=== PATIENT | female | born 2000 | race Caucasian/White ===

== ENCOUNTER 2022-02-22 03:16 | Emergency (ER) | payer MEDICAID, SELFPAY ==
[2022-02-22 03:17] VITALS: BP 120/78; PULSE 73; RESP 16; TEMP 36.2; O2SAT 100; BMI 20.7
[2022-02-22] MEDS: 0.9% Normal Saline 1,000 ML 999 ML IV (03:55)
[2022-02-22] MEDS: DiphenhydrAMINE 50 MG/ML Syringe IV (03:56)
[2022-02-22] MEDS: Metoclopramide 10 MG/2 ML Vial IV (03:57)
[2022-02-22] MEDS: Ketorolac 30 MG/ML Syringe IV (03:57)
--- NOTE | 2022-02-22 05:06 | EX.ED.DYSGE1 ---
HPI History of Present Illness Chief Complaint: Headache Narrative Narrative: Patient is a 21-year-old female with remote history of headaches. She states that she developed a left-sided headache which is where she typically gets her migraines around 4 PM today. She states the headache came on gradually increased over the course of hours. She denies any trauma fevers or chills or sick symptoms prior to the headache beginning. She states that she is sensitive to light and sound which is similar nature to her previous migraines. She reports she took [id number] medication without symptom improvement and secondary to this comes in for evaluation. [facility] Home Medications NK 02/22/22 [History Last Taken Unknown] Allergy/AdvReac Type Severity Reaction Status Date / Time gluten AdvReac Upset Verified 02/22/22 03:19 Stomach Social History Smoking Status: Current every day smoker tobacco type: e-cigarettes ROS ROS ED Constitutional Constitutional ED: Denies chills or fever(s) Eyes Eyes: Reports other Details: Positive photophobia ENT ENT ED: Denies sore throat Cardiovascular Cardiovascular: Denies chest pain Respiratory/Chest Respiratory/Chest: Denies cough or dyspnea Gastrointestinal Gastrointestinal: Reports nausea; Denies abdominal pain, diarrhea or vomiting Genitourinary Genitourinary ED: Denies dysuria Musculoskeletal Musculoskeletal: Denies myalgias or neck pain Integumentary Denies rash Neurologic Neurologic: Reports headache(s) Hematologic/Lymphatic Hematologic/Lymphatic: Denies easy bleeding or easy bruising EXAM Physical Exam Const Vital Signs: 02/22/22 03:17 02/22/22 05:15 Temperature 97.1 F L Temperature Source Temporal Pulse Rate 73 83 Respiratory Rate 16 15 Blood Pressure 120/78 Blood Pressure Mean 92 Pulse Ox 100 97 Oxygen Delivery Method Room Air Positive well nourished and well developed General Appearance ED: well developed HEENT Reports moist mucous membranes Eyes PERRL and EOMs intact bilaterally Neck supple Neck Narrative: No meningeal signs Resp normal respiratory effort and clear to auscultation bilaterally Cardio regular rate and regular rhythm GI normal to inspection, nondistended, normoactive bowel sounds, non-tender, non-distended and no masses Auscultation: normoactive bowel sounds Palpation: soft Extremity normal to inspection Neuro oriented x3 and CN's II-XII intact bilaterally Neuro Narrative: NIH stroke scale score of 0 Sensorium / Orientation: alert Motor Exam: strength 5/5 throughout Psych mental status grossly normal Skin no rashes or lesions noted MDM MDM MDM Narrative Medical decision making narrative: Patient presented to the ER with stable vitals and a normal neurologic exam. She does have a history of migraine headache and this 1 is similar nature based on its location and symptom profile. Therefore I felt no need for imaging or laboratory studies. Patient was medicated with IV fluids Toradol Benadryl and Reglan. On reevaluation she reports resolution of the headache and her neuro exam remains normal. Therefore as I have low concern for underlying infectious process and there is no physical exam or history reports concerning for trauma I do not feel there is need for further work-up and patient is safe for discharge Discharge Plan Triage Chief Complaint: Headache ED Provider: Nishant Walsh Dx/Rx/DC Orders Clinical Impression: Cephalgia Instructions: ED, Migraine (Classical) Prescriptions: No Action NK RF: 0 Primary Care Provider: Care Physician,No Primary Referrals: Ramon Argueta MD [STAFF PHYSICIAN] - 3-5 Days if not improving Care Physician,No Primary [Primary Care Provider] - Disposition Disposition: Home, Self Care Discharge Date/Time: 02/22/22 05:17
[2022-02-22 05:15] VITALS: PULSE 83; RESP 15; O2SAT 97
== END 2022-02-22 05:17 | disposition home or self-care (01) ==
PROVIDERS: Emergency Provider Emergency Medicine; Visit Provider Emergency Medicine
DX: R51.9 Headache, unspecified (principal); F17.290 Nicotine dependence, other tobacco product, uncomplicated
CPT/HCPCS: 96361; 96374; 96375; 99282; A4216

== ENCOUNTER 2022-03-17 22:45 | Emergency (ER) | payer MEDICAID, SELFPAY ==
[2022-03-17 22:46] VITALS: BP 116/76; PULSE 76; RESP 18; TEMP 36.4; O2SAT 98; BMI 18.8
--- NOTE | 2022-03-17 22:58 | ED.VIS.GI ---
HPI HPI - GI History of Present Illness Chief Complaint: Abd Pain Informant: patient Abdominal Pain/Flank Pain Onset: Weeks (2) Context: Gradual Onset Timing: Waxes and wanes Quality: Stabbing Location: - (Periumbilical) Worsened by: - (Sitting, working) Relieved by: Nothing Nausea/Vomiting/Emesis GI Symptom: Positive for Nausea; Negative for Vomiting Diarrhea/Melena/Hematochezia GI Symptom: Negative for Diarrhea, Melena and Hematochezia Associated Symptoms Associated Symptoms: Negative for Dysuria, Frequency and Hematuria LMP: November of this year Narrative Narrative: Patient presents with abdominal that pain began approximately 2 weeks ago. Patient states it has been waxing and waning. Patient states it has been constant for the last couple days. Patient states it is over the periumbilical area. Patient states she felt a lump in this area. Patient states it is worse with sitting and with working. Patient states nothing seems to help with it. Patient admits to nausea but denies any vomiting. Patient denies any diarrhea, melena, or hematochezia. Patient denies any dysuria, hematuria, or urinary frequency. Patient denies any abnormal vaginal bleeding or discharge. PFSH PFSH Medical History no medical history no medical history Home Medications NK 02/22/22 [History Last Taken Unknown] Allergy/AdvReac Type Severity Reaction Status Date / Time gluten AdvReac Upset Verified 03/17/22 22:48 Stomach Surgical History no surgical history no surgical history Social History Smoking Status: Current every day smoker tobacco type: e-cigarettes ROS ROS ED Constitutional Constitutional ED: Denies chills or fever(s) Eyes Eyes: Denies blurry vision or change in vision ENT ENT ED: Denies rhinorrhea or sore throat Cardiovascular Cardiovascular: Denies chest pain or palpitations Respiratory/Chest Respiratory/Chest: Reports dyspnea; Denies cough Gastrointestinal Gastrointestinal: Reports abdominal pain; Denies nausea or vomiting Genitourinary Genitourinary ED: Denies dysuria or hematuria Musculoskeletal Musculoskeletal: Denies back pain or neck pain Integumentary Denies abscess or rash Neurologic Neurologic: Denies headache(s) or weakness Allergic/Immunologic Allergic/Immunologic ED: Denies mouth swelling or urticaria EXAM Physical Exam Const Vital Signs: 03/17/22 22:46 03/18/22 01:58 Temperature 97.6 F L Temperature Source Temporal Pulse Rate 76 63 Respiratory Rate 18 14 Blood Pressure 116/76 107/70 Blood Pressure Mean 89 82 Pulse Ox 98 97 Oxygen Delivery Method Room Air Room Air Positive well nourished and well developed General Appearance ED: well developed and NAD HEENT Reports moist mucous membranes Neck supple and no JVD Resp normal respiratory effort and clear to auscultation bilaterally Cardio regular rate and regular rhythm GI no masses Auscultation: normoactive bowel sounds Palpation: soft and tender periumbilical; Negative for guarding or rebound tenderness present Neuro CN's II-XII intact bilaterally, moves all extremities and no sensory deficits noted Sensorium / Orientation: alert and oriented to person Motor Exam: strength 5/5 throughout MDM MDM MDM Narrative Medical decision making narrative: Patient was given IV fluids, morphine, and Zofran here. CBC was within normal limits. Comprehensive metabolic profile showed potassium of 2.9 but was otherwise within normal limits. Lipase was normal. Urinalysis does not show any evidence of urinary tract infection or hematuria. Serum hCG was negative. CT scan of the abdomen and pelvis was obtained. There is some mesenteric lymphadenopathy noted. There is a small amount of free fluid in the pelvis. There is no acute abnormality noted. This was interpreted by the radiologist and reviewed by myself. Patient is feeling better on reevaluation. Patient was advised of her findings. Patient was instructed to follow-up with her primary care physician in 5 to 7 days. Patient was instructed to take Tylenol or ibuprofen as needed for pain. Patient understood and was agreeable with the plan. All questions were answered. Lab Data Attestation: I reviewed the patient's lab results. Labs: Laboratory Results - last 24 hr 03/17/22 03/17/22 03/17/22 23:10 23:14 23:14 WBC 8.5 RBC 4.83 Hgb 13.0 Hct 40.4 MCV 83.6 MCH 26.9 L MCHC 32.2 RDW Std Deviation 43.6 RDW Coeff of [place] 14.2 Plt Count 181 MPV 12.4 H Immature Gran % (Auto) 0.200 Neut % (Auto) 55.1 Lymph % (Auto) 33.0 [place] % (Auto) 5.3 Eos % (Auto) 5.8 H Baso % (Auto) 0.6 Absolute Neuts (auto) 4.7 Absolute Lymphs (auto) 2.79 Nucleated RBC % 0 Sodium 141 Potassium 2.9 L Chloride 109 H Carbon Dioxide 26.0 Anion Gap 6 BUN 7 Creatinine 0.59 Estim Creat Clear Calc 129.61 Est GFR (MDRD) Af Amer 163 Est GFR (MDRD) Non-Af 135 BUN/Creatinine Ratio 11.8 Glucose 90 Calcium 8.7 Total Bilirubin 0.60 AST 9 L ALT 11 L Alkaline Phosphatase 42 L Total Protein 7.3 Albumin 4.1 Globulin 3.2 Albumin/Globulin Ratio 1.3 Lipase 58 L Serum , Qual Urine Color Yellow Urine Clarity Clear Urine pH 7.0 Ur Specific [place] 1.015 Urine Protein 15 H Urine Glucose (UA) Normal Urine Ketones 5 H Urine Occult Blood 25 H Urine Nitrite Negative Urine Bilirubin Negative Urine Urobilinogen Normal Ur Leukocyte Esterase 25 H Urine RBC 0-5 SEEN Urine WBC 0-5 SEEN Ur Squamous Epith Cells 0-5 SEEN Urine Bacteria 2+ Urine Mucus 2+ 03/17/22 23:14 WBC RBC Hgb Hct MCV MCH MCHC RDW Std Deviation RDW Coeff of [place] Plt Count MPV Immature Gran % (Auto) Neut % (Auto) Lymph % (Auto) [place] % (Auto) Eos % (Auto) Baso % (Auto) Absolute Neuts (auto) Absolute Lymphs (auto) Nucleated RBC % Sodium Potassium Chloride Carbon Dioxide Anion Gap BUN Creatinine Estim Creat Clear Calc Est GFR (MDRD) Af Amer Est GFR (MDRD) Non-Af BUN/Creatinine Ratio Glucose Calcium Total Bilirubin AST ALT Alkaline Phosphatase Total Protein Albumin Globulin Albumin/Globulin Ratio Lipase Serum , Qual NEGATIVE Urine Color Urine Clarity Urine pH Ur Specific [place] Urine Protein Urine Glucose (UA) Urine Ketones Urine Occult Blood Urine Nitrite Urine Bilirubin Urine Urobilinogen Ur Leukocyte Esterase Urine RBC Urine WBC Ur Squamous Epith Cells Urine Bacteria Urine Mucus Radiography Diagnostic Testing: Clinical Impression(s) from Imaging Studies Abdomen/Pelvis CT 03/18/22 23:04 IMPRESSION: Normal appendix. Small clustered pericecal lymph nodes, consistent with mesenteric adenitis. Small amount of nonspecific free fluid within the pelvis which may be due to a ruptured ovarian cyst. Numerous prominent periuterine vessels as can be seen with pelvic congestion. 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 Electronically Signed: Mao Baliey MD at 2:01 EDT , Discharge Plan Triage Chief Complaint: Abd Pain ED Provider: Ramon Weldon Dx/Rx/DC Orders Clinical Impression: Abdominal pain in female, Mesenteric adenitis Instructions: ED Abdominal Pain Unkn Cause Fem Prescriptions: No Action NK RF: 0 Primary Care Provider: Care Physician,No Primary Referrals: Ramon Agrawal MD [STAFF PHYSICIAN] - 3-5 Days Care Physician,No Primary [Primary Care Provider] - Disposition Disposition: Home, Self Care
[2022-03-17] MEDS: Morphine 4 MG/ML Syringe IV (23:17)
[2022-03-17] MEDS: Ondansetron 4 MG/2 ML Vial IV (23:17)
[2022-03-17] MEDS: 0.9% Normal Saline 1,000 ML 1000 ML IV (23:18)
[2022-03-17 23:47] LABS: Absolute Lymphocyte Count 2.79 X10^3/uL (0.83-4.51); Absolute Neutrophil Count 4.7 X10^3/uL (2.0-7.7); Basophil# 0.05 X10^3/uL; Basophil% 0.6 % (0-1); Eosinophil# 0.49 X10^3/uL; Eosinophils% 5.8 % (0-5); Hematocrit 40.4 % (37-47); Lymphocyte # 2.79 X10^3/ul (0.83-4.51); Mean Corp Hgb Conc 32.2 g/dL (32-36); Mean Corpuscular Hgb 26.9 pg (27.0-32.0); Mean Corpuscular Volume 83.6 fL (81-99); Mean Platelet Vol. 12.4 fl (6.2-12.0); Monocyte# 0.45 X10^3/uL; Monocyte% 5.3 % (0-10); NRBC Flagged by Analyzer 0 % (0-5); Neutrophil # 4.65 X10^3/uL (2.7-7.7); Neutrophil % 55.1 % (47-70); Platelet Count 181 K/mm3 (150-450); RBC Distribution Width CV 14.2 % (11.6-14.6); RBC Distribution Width SD 43.6 fl (35.1-43.9); Red Blood Count 4.83 M/mm3 (4.2-5.4); White Blood Count 8.5 K/mm3 (4.4-11.0)
[2022-03-18 00:04] LABS: Internal QC Validated? YES +Cl - CLEAR BKGD; Pregnancy, Serum, hCG Quali. NEGATIVE Negative
[2022-03-18 00:09] LABS: ALB/GLOB Ratio 1.3 RATIO (0.9-2.4); AST(SGOT) 9 U/L (15-37); Alanine Aminotransfer ALT/SGPT 11 U/L (13-56); Albumin, Serum 4.1 g/dL (3.2-5.0); Alkaline Phosphatase 42 U/L (45-117); Anion Gap 6 (5-15); BUN 7 mg/dL (7-18); BUN/Creat Ratio 11.8 RATIO (10-20); Calcium,Total 8.7 mg/dL (8.5-10.1); Chloride 109 mmol/L (98-107); Creatinine, Serum 0.59 mg/dL (0.55-1.02); EST Glomerular Filtration Rate 135 mL/min (>60); Est Glom Filt Rate - Afr Amer 163 mL/min (>60); Estimated Creatinine Clearance 129.61 ml/min; Globulin 3.2 g/dL (2.2-4.2); Glucose 90 mg/dL (74-106); Lipase 58 U/L (73-393); Potassium 2.9 mmol/L (3.5-5.1); Protein, Total 7.3 g/dL (6.4-8.2); Sodium Level 141 mmol/L (136-145)
[2022-03-18 00:11] LABS: Color, Urine Yellow (Yellow); Glucose, Dipstick Normal (Normal); Ketone-Dipstick 5 mg/dl (Negative); Leukocyte Esterase-Dipstick 25 /ul (Negative); Nitrite-Dipstick Negative (Negative); Occult Blood-Urine 25 /ul (Negative); Protein-Dipstick 15 mg/dl (Negative); Specific Gravity, Urine 1.015 (1.002-1.030); Urine Bilirubin Dipstick Negative (Negative); Urine Clarity Clear (Clear); Urine Urobilinogen Normal (Normal)
[2022-03-18] MEDS: Potassium Chloride Oral Tablet 20 MEQ 40 MEQ PO (00:33)
[2022-03-18 00:43] LABS: Bacteria 2+ /hpf (None Seen); Mucous, Urine 2+ /hpf (<or=2+); Red Blood Cells-Urine 0-5 SEEN /hpf (0-5); Squamous Epithelial Cells - UA 0-5 SEEN /hpf (5-10); White Blood Cells 0-5 SEEN /hpf (0-5)
[2022-03-18 01:58] VITALS: BP 107/70; PULSE 63; RESP 14; O2SAT 97
--- NOTE | 2022-03-18 23:04 | CT_ITS ---
EXAM: CT ABDOMEN AND PELVIS WITH INTRAVENOUS CONTRAST CLINICAL INDICATION: Abdominal pain -- IV PO Contrast oral contrast also administered. TECHNIQUE: Helically acquired images were obtained of the abdomen and pelvis with intravenous contrast. This CT exam was performed using one or more of the following dose reduction techniques: automated exposure control, adjustment of the mA and/or kV according to patient size, and/or use of iterative reconstruction technique. This report was created using [employer] report generation technology. CONTRAST: IV 75mL [id number] COMPARISON: None. FINDINGS: LOWER THORAX: Unremarkable. Lung bases are clear. No cardiomegaly. No significant pericardial effusion. ABDOMEN: LIVER: Unremarkable. Homogeneous. No focal mass. GALLBLADDER AND BILE DUCTS: Unremarkable. No calcified gallstones. No gallbladder distention or wall edema. No intra- or extrahepatic biliary ductal dilation. PANCREAS: Unremarkable. No focal cystic or solid mass. SPLEEN: Unremarkable. Normal size without focal cystic or solid mass. ADRENALS: Unremarkable. No nodules. KIDNEYS AND URETERS: Unremarkable. Normal renal size and position. No hydronephrosis. No obstructing ureteral stone. Left renal vein is not compressed by the SMA. STOMACH AND BOWEL: Gastric wall is not thickened. 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 The contrast-filled duodenal C-loop is mildly distended. More distal small bowel loops are unremarkable. No acute colonic abnormality is seen. PELVIS: APPENDIX: Normal. No evidence of acute appendicitis. BLADDER: The partially distended urinary bladder is unremarkable. REPRODUCTIVE: Uterus is normal size. Prominent periuterine vessels are present bilaterally, greater on the left, as can be seen with pelvic congestion. Ovaries are normal in size and contain tiny follicles. ABDOMEN and PELVIS: INTRAPERITONEAL SPACE: Small amount of nonspecific low-density free fluid in the cul-de-sac. No free air. BONES/JOINTS: Unremarkable. No suspicious lytic or blastic abnormality. SOFT TISSUES: Unremarkable. No discrete abdominal or pelvic wall hernia. VASCULATURE: See above. LYMPH NODES: Small lymph nodes are clustered in the pericecal region. A few additional small lymph nodes are noted within the small bowel mesentery. OTHER FINDINGS: Dose: Total DLP: 393.41 mGy-cm. CT/Abdomen/Pelvis WITH Contrast IMPRESSION: Normal appendix. Small clustered pericecal lymph nodes, consistent with mesenteric adenitis. Small amount of nonspecific free fluid within the pelvis which may be due to a ruptured ovarian cyst. Numerous prominent periuterine vessels as can be seen with pelvic congestion. 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 Electronically Signed: Mao Bailey MD at 2:01 EDT ,
== END 2022-03-18 02:24 | disposition home or self-care (01) ==
PROVIDERS: Emergency Provider Emergency Medicine; Visit Provider Emergency Medicine
DX: I88.0 Nonspecific mesenteric lymphadenitis (principal); F17.290 Nicotine dependence, other tobacco product, uncomplicated
CPT/HCPCS: 74177; 80053; 81001; 83690; 84703; 85025; 96361; 96374; 96375; 99284; J7030; Q9967; A4216; J2405

== ENCOUNTER 2022-04-08 23:54 | Emergency (ER) | payer MEDICAID, SELFPAY ==
[2022-04-08 23:56] VITALS: BP 111/84; PULSE 110; RESP 16; TEMP 36.5; O2SAT 100; BMI 19.5
--- NOTE | 2022-04-09 01:10 | RAD_ITS ---
EXAM: XR CHEST, 2 VIEWS CLINICAL INDICATION: intermittent sob TECHNIQUE: Frontal and lateral views of the chest. This report was created using [employer] report generation technology. COMPARISON: None. FINDINGS: LUNGS AND PLEURAL SPACES: Unremarkable. No consolidation or edema. No pneumothorax. No effusion. HEART: Unremarkable. Cardiac silhouette not enlarged. MEDIASTINUM: Central airways and mediastinal contour are unremarkable. BONES/JOINTS: Unremarkable. SOFT TISSUES: Unremarkable. RAD/Chest PA and Lateral IMPRESSION: No radiographic evidence of acute cardiopulmonary disease. Electronically Signed: Yfn Bell MD at 1:41 EDT ,
[2022-04-09] MEDS: Dicyclomine 10 MG Capsule 20 MG PO (01:14)
--- NOTE | 2022-04-09 01:14 | EDS_ITS ---
HPI History of Present Illness Chief Complaint: General Illness Informant: patient Narrative Narrative: Patient presents with chronic symptoms that seem to be getting worse. Unintentional weight loss due to malnutrition is what it sounds like, she eats half of a meal once a day at most. She states that she gets postprandial upper abdominal pain that is more in the right upper quadrant, some nausea no vomiting. No diarrhea she is usually more constipated but more recently has been having more normal stools, no blood or melena. Also having some left lower quadrant pain, the symptoms have been there for over a year. She states all of this seem to be more prominent after she had COVID last June. She was here 3 weeks ago for similar symptoms. She had a CT scan. She has seen GI in [place], she had endoscopy and was told initially she may have Crohn's disease based on the biopsies, but then saw somebody else and was told it was much less likely that it was Crohn's disease. They wanted to do a capsule study she states insurance would not cover it and she has not had that done. In the last 3 weeks or so, she has been intermittently dyspneic; she states it occurs randomly and then she spits saliva which makes it go away. She denies any chest discomfort or tightness, she thinks she may be wheezing at times when she is dyspneic but not always, and she cannot give me any more details on the salivation issues or why it makes things feel better. PFSH PFSH Medical History no medical history no medical history Home Medications NK 02/22/22 [History Last Taken Unknown] Allergy/AdvReac Type Severity Reaction Status Date / Time gluten AdvReac Upset Verified 04/08/22 23:56 Stomach Surgical History no surgical history Social History Smoking Status: Current every day smoker tobacco type: e-cigarettes ROS ROS ED Constitutional Constitutional ED: Reports malaise and weight loss; Denies chills or fever(s) Eyes Eyes: Denies change in vision or diplopia ENT ENT ED: Denies rhinorrhea or sore throat Cardiovascular Cardiovascular: Denies chest pain or palpitations Respiratory/Chest Respiratory/Chest: Reports as per HPI and dyspnea; Denies cough Gastrointestinal Gastrointestinal: Reports abdominal pain, constipation and nausea; Denies diarrhea, melena or vomiting Genitourinary Genitourinary ED: Denies dysuria or hematuria Musculoskeletal Musculoskeletal: Denies back pain or neck pain Integumentary Denies abscess or rash Neurologic Neurologic: Denies headache(s), paresthesias or weakness Psychiatric Psychiatric: Denies anxiety or suicidal thoughts EXAM Physical Exam Const Vital Signs: 04/08/22 23:56 04/09/22 00:18 Temperature 97.7 F L Temperature Source Temporal Pulse Rate 110 H Respiratory Rate 16 Respiratory Effort Normal Non-Labored Respiratory Pattern Normal Blood Pressure 111/84 H Blood Pressure Mean 93 Pulse Ox 100 Oxygen Delivery Method Room Air Positive well nourished and well developed General Appearance ED: well developed and NAD HEENT Reports moist mucous membranes normocephalic and atraumatic Eyes PERRL and EOMs intact bilaterally Neck full ROM and supple Chest Wall inspection of chest normal and palpation of chest normal Resp normal respiratory effort and clear to auscultation bilaterally Cardio regular rate, regular rhythm, no murmurs and peripheral pulses 2+ throughout Cardio Narrative: Mild tachycardia GI non-tender and non-distended Auscultation: normoactive bowel sounds Palpation: soft Back/Spine no CVA tenderness General Back: other FROM Extremity normal to inspection General Extremety ED: Negative for edema, pulses abnormal or tenderness General Extremity: Negative for edema or pulses abnormal Neuro oriented x3, CN's II-XII intact bilaterally and no sensory deficits noted Sensorium / Orientation: awake and alert Motor Exam: strength 5/5 throughout Psych mental status grossly normal Skin no rashes or lesions noted and no wounds MDM MDM MDM Narrative Medical decision making narrative: I reviewed her CT result from June at an outside [place] health facility, it showed scattered air-fluid levels with nondilated small bowel and was nonspecific and relatively unremarkable. I reviewed her CT from 3 weeks ago here, it actually shows suspicion for superior mesenteric artery syndrome which could be causing all of her problems. Conservative treatment is recommended initially. She was very hypokalemic the last time she was here, I repeated her electrolytes and gave her a liter of IV fluids in addition to a dose of oral Bentyl in the meantime. 2 view chest x-ray my interpretation is normal, radiology in agreement. Her electrolytes are normal except for potassium which is still low at 3.3, better than her last one at 2.9. I gave her an infusion of IV potassium 10 mill equivalents in addition to oral 40 mEq. I discussed with surgery here, they do not perform surgery for SMA syndrome in [place]. She would need to be at a specialty hospital such as [facility] more than likely. Patient is here between 1 and 3 AM. I did discuss with the resident surgeon at [facility], he advised they do not have any beds at [facility] right now, nor does she necessarily need to be an inpatient for this at this time, which I am in agreement with. He said it would be reasonable to have the patient follow-up locally with GI who could work her up further with testing that is not available to me right now to see if she indeed has superior mesenteric artery syndrome which the CT is suggesting but is not diagnostic for. I think this would be reasonable as well. She is given appropriate discharge instructions. Lab Data Attestation: I reviewed the patient's lab results. Labs: Laboratory Results - last 24 hr 04/09/22 04/09/22 00:10 00:10 WBC 9.6 RBC 5.04 Hgb 13.2 Hct 42.1 MCV 83.5 MCH 26.2 L MCHC 31.4 L RDW Std Deviation 43.3 RDW Coeff of [place] 14.4 Plt Count 220 MPV 12.6 H Immature Gran % (Auto) 0.100 Neut % (Auto) 53.8 Lymph % (Auto) 32.8 [place] % (Auto) 5.5 Eos % (Auto) 7.3 H Baso % (Auto) 0.5 Absolute Neuts (auto) 5.1 Absolute Lymphs (auto) 3.14 Nucleated RBC % 0 Sodium 141 Potassium 3.3 L Chloride 106 Carbon Dioxide 28.0 Anion Gap 7 BUN 8 Creatinine 0.68 Estim Creat Clear Calc 116.76 Est GFR (MDRD) Af Amer 139 Est GFR (MDRD) Non-Af 115 BUN/Creatinine Ratio 11.8 Glucose 107 H Calcium 9.4 Radiography Diagnostic Testing: Clinical Impression(s) from Imaging Studies Chest X-Ray 04/09/22 01:10 IMPRESSION: No radiographic evidence of acute cardiopulmonary disease. Electronically Signed: Yfn Bell MD at 1:41 EDT , Discharge Plan Triage Chief Complaint: General Illness ED Provider: Josue Stein Dx/Rx/DC Orders Clinical Impression: Malnutrition, Postprandial abdominal pain in right upper quadrant, Hypokalemia due to inadequate potassium intake Instructions: Abdominal Pain, ED Hypokalemia Prescriptions: No Action NK Primary Care Provider: Care Physician,No Primary Referrals: Friend,Edgar, DO [STAFF PHYSICIAN] - As soon as possible (call for appt) Care Physician,No Primary [Primary Care Provider] - Activity Restrictions/Additional Instructions: Boost your protein intake with supplements, such as boost shakes or Ensure. You may also get powdered whey protein to make your own protein shakes or smoothies at home. Drink plenty of fluids. Disposition Disposition: Home, Self Care
[2022-04-09] MEDS: 0.9% Normal Saline 1,000 ML 999 ML IV (01:16)
[2022-04-09 01:18] LABS: Absolute Lymphocyte Count 3.14 X10^3/uL (0.83-4.51); Absolute Neutrophil Count 5.1 X10^3/uL (2.0-7.7); Basophil# 0.05 X10^3/uL; Basophil% 0.5 % (0-1); Eosinophils% 7.3 % (0-5); Hematocrit 42.1 % (37-47); Hemoglobin 13.2 g/dL (12.0-15.0); Lymphocyte # 3.14 X10^3/ul (0.83-4.51); Lymphocyte % 32.8 % (19-41); Mean Corp Hgb Conc 31.4 g/dL (32-36); Mean Corpuscular Hgb 26.2 pg (27.0-32.0); Mean Corpuscular Volume 83.5 fL (81-99); Mean Platelet Vol. 12.6 fl (6.2-12.0); Monocyte# 0.53 X10^3/uL; Monocyte% 5.5 % (0-10); NRBC Flagged by Analyzer 0 % (0-5); Neutrophil # 5.13 X10^3/uL (2.7-7.7); Neutrophil % 53.8 % (47-70); Platelet Count 220 K/mm3 (150-450); RBC Distribution Width CV 14.4 % (11.6-14.6); RBC Distribution Width SD 43.3 fl (35.1-43.9); Red Blood Count 5.04 M/mm3 (4.2-5.4); White Blood Count 9.6 K/mm3 (4.4-11.0)
[2022-04-09 01:33] LABS: Anion Gap 7 (5-15); BUN 8 mg/dL (7-18); BUN/Creat Ratio 11.8 RATIO (10-20); Calcium,Total 9.4 mg/dL (8.5-10.1); Chloride 106 mmol/L (98-107); Creatinine, Serum 0.68 mg/dL (0.55-1.02); EST Glomerular Filtration Rate 115 mL/min (>60); Est Glom Filt Rate - Afr Amer 139 mL/min (>60); Estimated Creatinine Clearance 116.76 ml/min; Glucose 107 mg/dL (74-106); Potassium 3.3 mmol/L (3.5-5.1); Sodium Level 141 mmol/L (136-145)
[2022-04-09 02:00] VITALS: RESP 15
[2022-04-09] MEDS: Potassium Chloride Oral Tablet 20 MEQ 40 MEQ PO (02:20)
[2022-04-09] MEDS: Potassium Chloride 10mEq/100mL 10 MEQ/100 ML IV.SOLN. 100 MEQ IV BOLUS (02:36)
[2022-04-09 03:37] VITALS: BP 104/78; PULSE 74; RESP 17; O2SAT 98
== END 2022-04-09 03:38 | disposition home or self-care (01) ==
PROVIDERS: Emergency Provider Emergency Medicine; Visit Provider Emergency Medicine
DX: E46 Unspecified protein-calorie malnutrition (principal); E87.6 Hypokalemia; R10.11 Right upper quadrant pain; F17.290 Nicotine dependence, other tobacco product, uncomplicated; Z68.1 Body mass index [BMI] 19.9 or less, adult; Z86.16 Personal history of COVID-19
CPT/HCPCS: 71046; 80048; 85025; 96361; 96365; 99284; J7030; A4216

== ENCOUNTER → 2022-04-25 | Outpatient (CLI) | payer MEDICAID, SELFPAY ==
[2022-04-25 11:23] LABS: Erythrocyte Sedimentation Rate 3 mm/hr (0-30)
[2022-04-25 11:52] LABS: Vitamin B12 395 pg/mL (211-911); Vitamin D,25 Hydroxy 21.9 ng/mL
[2022-04-25 12:16] LABS: CRP < 2.90 mg/L (0.0-3.0); LDH 160 U/L (84-246); Thyroid Stim Hormone (TSH) 4.65 uIU/mL (0.358-3.74)
[2022-04-26 17:07] LABS: Endomysial Antibody IgA Negative (Negative)
[2022-04-26 20:20] LABS: Immunoglobulin A 224 mg/dL (87-352); t-Transglutaminase IgA <2 U/mL (0-3)
[2022-04-27 16:08] LABS: Anti-Centromere B Ab <0.2 AI (0.0-0.9); Anti-Chromatin <0.2 AI (0.0-0.9); Anti-Jo <0.2 AI (0.0-0.9); Anti-Scleroderma-70 AB <0.2 AI (0.0-0.9); RNP Ab <0.2 AI (0.0-0.9); SJOGREN'S Anti-SS-A test < 0.2 AI (0.0-0.9); SJOGREN'S Anti-SS-B test < 0.2 AI (0.0-0.9); Smith Ab <0.2 AI (0.0-0.9)
[2022-04-28 20:21] LABS: Anti-dsDNA Ab <1 IU/mL (0-9); Vitamin D 1,25-Dihydroxy 34.5 pg/mL (24.8-81.5)
[2022-04-29 17:07] LABS: Albumin 4.1 g/dL (2.9-4.4); Alpha-1-Globulins 0.3 g/dL (0.0-0.4); Alpha-2-Globulins 0.6 g/dL (0.4-1.0); Cytoplasmic Ab (C-ANCA) <1:20 titer (Neg:<1:20); Gamma Globulin 1.3 g/dL (0.4-1.8); Immunoglobulin A 216 mg/dL (87-352); Immunoglobulin G 1170 mg/dL (586-1602); Immunoglobulin M 185 mg/dL (26-217); PROEL- TOTAL PROTEIN 7.3 g/dL (6.0-8.5)
[2022-04-30 13:49] LABS: Immunoglobulin E < 2 IU/mL (6-495); Perinuclear Ab (P-ANCA) <1:20 titer (Neg:<1:20)
== END | disposition home or self-care (01) ==
LOC: LAB 10:49
PROVIDERS: Visit Provider Internal Medicine Gastroenterology
DX: R19.7 Diarrhea, unspecified (principal)
CPT/HCPCS: 36415; 82306; 82607; 82652; 82746; 82784; 82785; 83516; 83615; 84165; 84443; 85652; 86140; 86225; 86235; 86255; 86256; 86334

== ENCOUNTER → 2022-04-26 | Outpatient (CLI) | payer MEDICAID, SELFPAY ==
[2022-05-02 15:54] LABS: Pancreatic Elastase, Fecal 329 (>200)
[2022-05-03 07:41] LABS: Calprotectin, Stool 56 ug/g (0-120)
== END | disposition home or self-care (01) ==
LOC: LABSPEC 11:18
PROVIDERS: Referring Provider Internal Medicine Gastroenterology; Visit Provider Internal Medicine Gastroenterology
DX: R19.7 Diarrhea, unspecified (principal); K58.9 Irritable bowel syndrome, unspecified
CPT/HCPCS: 82653; 83630; 83993; 87177; 87209; 87506

== ENCOUNTER 2022-06-05 13:59 | Emergency (ER) | payer MEDICAID, SELFPAY ==
[2022-06-05 14:00] VITALS: BP 117/82; PULSE 121; RESP 14; TEMP 36.8; O2SAT 100; BMI 18.4
--- NOTE | 2022-06-05 14:55 | EDS_ITS ---
HPI History of Present Illness Chief Complaint: Lower Extremity Injury Informant: patient Narrative Narrative: Presenting here with her friend evaluation of worsening left hip pain and right knee pain for the past 5 days. Had initial fall down some steps in December injuring left hip would have pain from time to time. Symptoms started after taking out garbage. There is no new direct injuries to the hip. However states she may have bumped the trash can on her right knee and there is small bruise. She is able ambulate's been using Tylenol. 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 Reported has been cleared from a previous concern of Crohn's for 5 years. Denies history of gastric ulcers or kidney injury. She is able to ambulate. No paresthesias. Prior similar symptoms: Yes PFSH PFSH Medical History no medical history Home Medications naproxen 500 mg tablet 500 mg PO BID PRN #20 tabs 06/05/22 [Rx Last Taken Unknown] Allergy/AdvReac Type Severity Reaction Status Date / Time gluten AdvReac Upset Verified 06/05/22 14:00 Stomach Surgical History no surgical history Social History Smoking Status: Current every day smoker tobacco type: e-cigarettes ROS ROS ED Constitutional Constitutional ED: Denies chills, fever(s) or sweats Eyes Eyes: Denies change in vision ENT ENT ED: Denies dysphagia or sore throat Cardiovascular Cardiovascular: Denies chest pain, leg edema, palpitations or racing heartbeat Respiratory/Chest Respiratory/Chest: Denies cough, dyspnea or dyspnea on exertion Gastrointestinal Gastrointestinal: Denies abdominal pain, diarrhea, nausea or vomiting Genitourinary Genitourinary ED: Denies dysuria, hematuria or urinary frequency Musculoskeletal Musculoskeletal: Reports extremity pain and other Details: Left hip pain, right knee pain ; Denies back pain or neck pain Integumentary Denies rash or wounds Neurologic Neurologic: Denies headache(s), paresthesias or weakness EXAM Physical Exam Const Vital Signs: 06/05/22 14:00 06/05/22 16:02 Temperature 98.2 F Temperature Source Temporal Pulse Rate 121 H 62 Respiratory Rate 14 15 Blood Pressure 117/82 H 116/74 Blood Pressure Mean 93 Pulse Ox 100 98 Oxygen Delivery Method Room Air Positive well nourished and well developed General Appearance ED: well developed and NAD HEENT Reports moist mucous membranes normocephalic and atraumatic Eyes PERRL, EOMs intact bilaterally and conjunctivae normal General Eye ED: Yes normal appearance of both eyes Neck no lymphadenopathy and supple General: Negative for tenderness Chest Wall Chest: Negative for tenderness Resp normal respiratory effort and normal air movement Effort and Inspection: symmetric chest movement; Negative for respiratory distress Cardio regular rate, regular rhythm and no murmurs Peripheral Pulses: pulses 2+ throughout GI normal to inspection, nondistended, normoactive bowel sounds and non-tender Palpation: Negative for guarding or rebound tenderness present Back/Spine no CVA tenderness and no thoracic nor lumbar tenderness Extremity Extremity Narrative: Left lower extremity: Negative logroll. There is pain with hip flexion along with AB duction against resistance Front Desk Attendant no knee tenderness. Neuro vas intact distally. Right lower extremity: Negative logroll, knee extensors intact there is mild tenderness proximal fib there was small ecchymosis just distal to this. Skin is intact. Follows reproduce pain with forced adduction along the IT band. Neuro vas intact distally. General Extremety ED: Negative for edema or tenderness General Extremity: Negative for edema Neuro oriented x3 and no sensory deficits noted Sensorium / Orientation: awake and alert Skin no rashes or lesions noted and no wounds MDM MDM MDM Narrative Medical decision making narrative: Patient's exam concerns for left hip strain she reported x-ray performed back initial injury was negative. She has new right knee pain exam consistent with IT band syndrome. However there is ecchymosis near the proximal fibular head. 4 view x-ray right knee obtained reviewed by myself and read by radiology shows no fractures. Patient placed on NSAIDs. She states she is cleared from Crohn's states it was not part of her current diagnosis. She is continue on NSAID she is ambulatory in the ED. Initial tachycardia resolved. Patient will follow-up as an outpatient. All questions were answered. Radiography Diagnostic Testing: Clinical Impression(s) from Imaging Studies Knee X-Ray 06/05/22 15:15 IMPRESSION: Normal x-ray examination of the knee. Electronically Signed: Feliciano Stern MD at 15:32 EDT , Discharge Plan Triage Chief Complaint: Lower Extremity Injury ED Provider: Nikhil Fung Dx/Rx/DC Orders Clinical Impression: Contusion of knee, right, Iliotibial band syndrome of right side, Strain of left hip Instructions: IT Band Syndrome Tx, ED Soft Tissue Contusion, ED Hip Strain Prescriptions: New naproxen 500 mg tablet 500 mg PO BID PRN Qty: 20 0RF Primary Care Provider: Care Physician,No Primary Referrals: Shane Horan MD [Med Staff - Active Staff] - 1 Week Care Physician,No Primary [Primary Care Provider] - Disposition Disposition: Home, Self Care Discharge Date/Time: 06/05/22 16:03
--- NOTE | 2022-06-05 15:15 | RAD_ITS ---
STUDY: X-RAY - RIGHT KNEE REASON FOR EXAM: Female, 22 years old. Injury -- prox fib tenderness TECHNIQUE: 4 view(s) of the knee. COMPARISON: None. FINDINGS: Normal visualized distal femur. Normal visualized proximal tibia and fibula. Normal proximal tibiofibular articulation. Normal medial femorotibial compartment. Normal lateral femorotibial compartment. Normal patellofemoral articulation. The soft tissue structures are unremarkable. RAD/Knee 4 or More Views IMPRESSION: Normal x-ray examination of the knee. Electronically Signed: Feliciano Stern MD at 15:32 EDT ,
[2022-06-05] MEDS: Naproxen 500 MG Tablet PO (15:24)
[2022-06-05 16:02] VITALS: BP 116/74; PULSE 62; RESP 15; O2SAT 98
== END 2022-06-05 16:03 | disposition home or self-care (01) ==
PROVIDERS: Emergency Provider Emergency Medicine; Visit Provider Emergency Medicine
DX: S80.01XA Contusion of right knee, initial encounter (principal); S76.012A Strain of muscle, fascia and tendon of left hip, initial encounter; W10.9XXA Fall (on) (from) unspecified stairs and steps, initial encounter; W22.09XA Striking against other stationary object, initial encounter; M76.31 Iliotibial band syndrome, right leg; F17.290 Nicotine dependence, other tobacco product, uncomplicated
CPT/HCPCS: 73564; 99282

== ENCOUNTER 2022-07-01 05:29 | Day surgery (SDC) | payer MEDICAID, SELFPAY ==
[2022-07-01] VITALS (7 sets, daily range): BP systolic 83–105; BP diastolic 53–64; PULSE 53–60; RESP 16–18; TEMP 36.3–36.4; O2SAT 98–100; BMI 18.3
--- NOTE | 2022-07-01 | COLBX_PTH ---
PATIENT: JUAN GARCIA LOC: EN U#:[id number] AGE/SX: 22/ ROOM: RE07/01/[address]: Dr. Edgar Easley DO : 2000 BED: DIS: 07/01/2022 SPEC #: [id number] RECD: 07/01/22 10:26 STATUS: DEBORA ARIELLA #: [id number] BRITTANY: 07/01/22 00:[address]: Edgar Easley DEPT: SURGICAL PATHOLOGY RECD BY: Modesto Payne ENTERED: 07/01/22 10:26 SP TYPE: COLON BX OTHR DR: No Primary Care Phys Tissues: A - Duodenum, NOS B - Ileum, NOS Procedures: Surgery Specimen Level IV HEADER OPERATION: Colonoscopy, EGD ([facility]) with biopsies PRE-OP DIAGNOSIS: Nausea, vomiting, diarrhea TISSUE SUBMITTED: A ? Duodenum biopsy, B ? Terminal ileum biopsy MICROSCOPIC DIAGNOSIS A. Duodenum, biopsy: No pathologic change. B. Terminal ileum, biopsy: Mild acute ileitis. See comment. AM:chicho 07/02/2022 COMMENT B. Focal neutrophilic infiltration is seen in glandular epithelium. No granulomas, fissuring ulcers or crypt abscesses are identified. Clinical correlation is suggested. MICROSCOPIC DESCRIPTION Slides are reviewed. GROSS DESCRIPTION A - Received in fixative is one container labeled with the patient's name and designated duodenum biopsy. The specimen consists of multiple irregular fragments of light persaud soft tissue that in aggregate measure 2 x 0.3 x 0.1 cm. The specimen is totally submitted in one cassette. B - Received in fixative is one container labeled with the patient's name and designated terminal ileum biopsy. The specimen consists of multiple irregular fragments of light persaud soft tissue that in aggregate measure 1.5 x 0.5 x 0.1 cm. The specimen is totally submitted in one cassette. / TESSA:chicho 07/01/2022 TC:2 CPT: 18465 x2
[2022-07-01] MEDS: Lactated Ringers 1,000 ML 15 ML IV (05:45)
[2022-07-01 06:15] LABS: Internal QC Validated? YES +Cl - CLEAR BKGD; Pregnancy, Urine Negative Negative
--- NOTE | 2022-07-01 06:30 | PCM.HP.BLA ---
History and Physical Date of Admission: 07/01/22 JUAN GARCIA, is a 21 F who presents to the office today for Initial consult. Juan established with this clinic 04.25.22 following [facility] ED presentation. Previously seen by GI with endoscopy performed and possible Crohn?s disease diagnosed; another provider seen who did not confirm this suspicion, wanted to perform capsule endoscopy but insurance would not cover. CT from 03.18.22 reviewed with noted suspicion for SMA. She was given fluids to correct electrolyte imbalance and [facility] surgeon contacted to discuss surgical intervention who recommended local GI confirm diagnosis and she was discharge to follow up as an outpatient. Stools are soft with mucous occurring 6-8 times a day with daily intermittent lower abdominal pain. Presented to [facility] ED 03.18.22 for intermittent abdominal pain that became constant with nausea but no emesis onset 2016. Presented again 04.09.22 with continued nausea without emesis, LLQ abdominal pain and weight loss r/t malnutrition. Weight loss started last year with weight of 190lbs in June and contraction of COVID in and weight loss started. Smokes marijuana 4-5 bongs a day. Showers and bathes are not found to be helpful. This helps with appetite and depression. CT abd/pel 03.18.22 with narrow angle between abdominal aorta and SMA with compression of distal duodenum, duodenal C-loop mildly distended; small amount of nonspecific free fluid within pelvis, ?r/t ruptured ovarian cyst; prominent periuterine vessels, as seen with pelvic congestion. Weights Height 5?7? 9.2020 190lbs 150lbs 04.25.22 115lbs ROS Const Constitutional: No anorexia, fatigue, fever(s), weight change or sleep problems Eyes Eyes: No change in vision ENT ENT: No abnormal hearing, difficulty swallowing, mouth lesions, tongue swelling or throat swelling Resp Respiratory: No cough or shortness of breath Cardio Cardiology: No chest pain at rest, chest pain with exertion, shortness of breath or dyspnea on exertion Gastro GI: No difficulty swallowing Genitourinary-Female: No difficulty urinating or burning urination Musc Musculoskeletal: No joint pain, joint swelling, muscle weakness or decreased muscle mass Skin Skin: No hair loss in leg, yellowing of the eye, itchy eyes, rash, skin ulcer or skin swelling Neuro Neurology: No abnormal hearing, abnormal movements, confusion, unsteady gait/balance or memory loss Psych Psychiatric: No anxiety, No confusion and No memory loss Endo Endocrine: No fatigue or weight change Aller/Imm Allergy/Immunologic: No itchy eyes, throat swelling or tongue swelling Timothy/Lymp Hematologic/Lymphatic: No easy bleeding, easy bruising or enlarged lymph nodes Exam Const General: cooperative and comfortable Nutritional Appearance: average body habitus and well nourished [facility] Head: normal to inspection Ears: hearing grossly normal bilaterally Nose: external nose normal Face and sinus: normal facial exam Mouth: oral mucosae normal Throat: posterior oropharynx normal Eyes General: appearance normal, both eyes and all related structures Neck Neck: normal visual inspection Chest Chest palpation & inspection: normal inspection of the chest and normal palpation of entire chest wall Resp Effort & Inspection: normal respiratory effort Auscultation: Bilateral: Clear to Auscultation Cardio Palpation: normal PMI Rate: regular rate Rhythm: regular rhythm GI Inspection: normal to inspection Auscultation: normal bowel sounds Percussion: normal to percussion Palpation: no hepatosplenomegaly Skin General: no rashes or lesions noted Neuro General: patient alert Extrem General: normal to inspection Psych Affect: normal affect Quality Reporting Tobacco Screening ([facility]) Smoking Status: Current every day smoker Assessment and Plan Assessment and Plan (1) Weight loss: ?Status:?Acute ?Plan: The weight loss concerns me that she may have a autoimmune disease such as protein calorie malnutrition resulting in from possible inflammatory bowel disease, eosinophilic gastroenteritis or chronic infection of the GI tract.? She will get stool testing along with biochemical testing she will also have an upper and lower endoscopy and possible capsule endoscopy to perform biopsies.? She does marijuana that helps with her nausea.? However there is an entity called marijuana hyperemesis that is associated with frequent marijuana usage is improved if there is no? smoking for about a year.. (2) SMAS (superior mesenteric artery syndrome): ?Status:?Acute ?Plan: The CT scan of the abdomen pelvis possible superior mesenteric artery syndrome.? I am not sure if this is a definitive diagnosis for her.? She will need an upper GI contrast study to see if there is any superior mesenteric artery syndrome in which she is to expect in the future if that is diagnosis.. . ? ? ? Orders: Orders CRP Today R19.7 - Diarrhea, unspecified ? LDH Today R19.7 - Diarrhea, unspecified ? Erythrocyte Sed Rate Today R19.7 - Diarrhea, unspecified ? REESE Comprehensive Panel Today R19.7 - Diarrhea, unspecified ? Calprotectin, Stool Today R19.7 - Diarrhea, unspecified ? Ova and Parasites 8623 Today K58.9 - Irritable bowel syndrome without diarrhea, R19.7 - Diarrhea, unspecified ? ENTERIC PATHOGEN PANEL STOOL Today K58.9 - Irritable bowel syndrome without diarrhea, R19.7 - Diarrhea, unspecified ? Stool Lactoferrin/WBC Today K58.9 - Irritable bowel syndrome without diarrhea, R19.7 - Diarrhea, unspecified ? ANCA Today R19.7 - Diarrhea, unspecified ? Celiac Disease Profile Today R19.7 - Diarrhea, unspecified ? Immunoglobulin E Today R19.7 - Diarrhea, unspecified ? LORE + Protein Elect, Serum Today R19.7 - Diarrhea, unspecified ? Pancreatic Elastase, Fecal Today R19.7 - Diarrhea, unspecified ? Vitamin D,25 Hydroxy Today R19.7 - Diarrhea, unspecified ? Vitamin B12 Today R19.7 - Diarrhea, unspecified ? Folates, (Folic Acid) Today R19.7 - Diarrhea, unspecified ? Thyroid Stim Hormone (TSH) Today R19.7 - Diarrhea, unspecified ? Vitamin D 1,25-Dihydroxy Today R19.7 - Diarrhea, unspecified ? CDIFF (PCR) Today R19.7 - Diarrhea, unspecified ? I have re-examined the patient. There are no clinical changes since date of exam.
--- NOTE | 2022-07-01 07:17 | OP.EGD_ITS ---
Patient Name: Marii Fernandez Procedure Date: 07/01/2022 6:11 AM Date of : 2000 Age: 22 Procedure: Upper GI endoscopy Indications: Epigastric abdominal pain Providers: Edgar Easley DO Referring MD: No Primary Care Physician Medicines: Monitored Anesthesia Care Patient Profile: This is a 22 year old female. Refer to note in patient chart for documentation of history and physical. Patient has symptoms of chronic abdominal cramping and chronic epigastric abdominal pain. Complications: No immediate complications. Procedure: Pre-Anesthesia Assessment: - Prior to the procedure, a History and Physical was performed, and patient medications and allergies were reviewed. The risks and benefits of the procedure and the sedation options and risks were discussed with the patient. All questions were answered and informed consent was obtained. Patient identification and proposed procedure were verified by the physician in the pre-procedure area. Mental Status Examination: alert and oriented. Airway Examination: normal oropharyngeal airway and neck mobility. Respiratory Examination: clear to auscultation. CV Examination: normal. Prophylactic Antibiotics: The patient does not require prophylactic antibiotics. Prior Anticoagulants: The patient has taken no previous anticoagulant or antiplatelet agents. After reviewing the risks and benefits, the patient was deemed in satisfactory condition to undergo the procedure. The anesthesia plan was to use monitored anesthesia care (MAC). Immediately prior to administration of medications, the patient was re-assessed for adequacy to receive sedatives. The heart rate, respiratory rate, oxygen saturations, blood pressure, adequacy of pulmonary ventilation, and response to care were monitored throughout the procedure. The physical status of the patient was re-assessed after the procedure. After obtaining informed consent, the endoscope was passed under direct vision. Throughout the procedure, the patient's blood pressure, pulse, and oxygen saturations were monitored continuously. The colonoscope was introduced through the mouth, and advanced to the second part of duodenum. The upper GI endoscopy was accomplished without difficulty. The patient tolerated the procedure well. Scope In: 6:47:22 AM Scope Out: 6:51:08 AM Total Procedure Duration Time 0 hours 3 minutes 46 seconds Findings: The examined esophagus was normal. A small hiatal hernia was present. No other significant abnormalities were identified in a careful examination of the stomach. No gross lesions were noted in the second portion of the duodenum. Biopsies were taken with a cold forceps for histology. Verification of patient identification for the specimen was done. Estimated blood loss was minimal. Impression: - Normal esophagus. - Small hiatal hernia. - No gross lesions in the second portion of the duodenum. Biopsied. Recommendation: - Discharge patient to home. - Resume previous diet. - Continue present medications. - Await pathology results. - Repeat upper endoscopy for surveillance based on pathology results. Procedure Code(s): --- Professional --- 59910, Esophagogastroduodenoscopy, flexible, transoral; with biopsy, single or multiple CPT copyright 2017 [employer]. All rights reserved. The codes documented in this report are preliminary and upon chart picker review may be revised to meet current compliance requirements. Edgar Easley DO 07/01/2022 7:11:37 AM This report has been signed electronically. Number of Addenda: 0 Note Initiated On: 07/01/2022 6:11 AM
--- NOTE | 2022-07-01 07:18 | OP.CCLET_ITS ---
07/01/2022 No Primary Care Physician Re : Colonoscopy procedure for Marii Fernandez Dear Care Physician This procedure was performed on Friday, July 01, 2022. My impressions and recommendations are as follows: Impressions : - Decreased sphincter tone found on digital rectal exam. - The entire examined colon is normal. - Multiple ulcers in the distal ileum and in the terminal ileum. Biopsied. Recommendations : - Discharge patient to home. - Resume previous diet. - Continue present medications. - Await pathology results. - Repeat colonoscopy in 1 year for surveillance based on pathology results. - Return to GI office. My findings are described in the full procedure note, which is enclosed. If I can be of further assistance, please feel free to contact me at . Sincerely, Edgar Easley, 07/01/2022 7:15:32 AM This report has been signed electronically.
--- NOTE | 2022-07-01 07:18 | OP.CCLET_ITS ---
07/01/2022 No Primary Care Physician Re : Upper GI endoscopy procedure for Marii Jim Dear Care Physician This procedure was performed on Friday, July 01, 2022. My impressions and recommendations are as follows: Impressions : - Normal esophagus. - Small hiatal hernia. - No gross lesions in the second portion of the duodenum. Biopsied. Recommendations : - Discharge patient to home. - Resume previous diet. - Continue present medications. - Await pathology results. - Repeat upper endoscopy for surveillance based on pathology results. My findings are described in the full procedure note, which is enclosed. If I can be of further assistance, please feel free to contact me at . Sincerely, Edgar Easley, 07/01/2022 7:11:37 AM This report has been signed electronically.
--- NOTE | 2022-07-01 07:18 | OP.COLON_ITS ---
Patient Name: Marii Fernandez Procedure Date: 07/01/2022 6:51 AM Date of : 2000 Age: 22 Procedure: Colonoscopy Indications: Suspected Crohn's disease of the small bowel Providers: Edgar Easley DO Referring MD: No Primary Care Physician Medicines: Monitored Anesthesia Care Patient Profile: This is a 22 year old female. Refer to note in patient chart for documentation of history and physical. Patient has symptoms of chronic abdominal cramping and chronic epigastric abdominal pain. Last Colonoscopy: within the past 3 years. Complications: No immediate complications. Procedure: Pre-Anesthesia Assessment: - Prior to the procedure, a History and Physical was performed, and patient medications and allergies were reviewed. The risks and benefits of the procedure and the sedation options and risks were discussed with the patient. All questions were answered and informed consent was obtained. Patient identification and proposed procedure were verified by the physician in the pre-procedure area. Mental Status Examination: alert and oriented. Airway Examination: normal oropharyngeal airway and neck mobility. Respiratory Examination: clear to auscultation. CV Examination: normal. Prophylactic Antibiotics: The patient does not require prophylactic antibiotics. Prior Anticoagulants: The patient has taken no previous anticoagulant or antiplatelet agents. After reviewing the risks and benefits, the patient was deemed in satisfactory condition to undergo the procedure. The anesthesia plan was to use monitored anesthesia care (MAC). Immediately prior to administration of medications, the patient was re-assessed for adequacy to receive sedatives. The heart rate, respiratory rate, oxygen saturations, blood pressure, adequacy of pulmonary ventilation, and response to care were monitored throughout the procedure. The physical status of the patient was re-assessed after the procedure. After I obtained informed consent, the scope was passed under direct vision. Throughout the procedure, the patient's blood pressure, pulse, and oxygen saturations were monitored continuously. The colonoscope was introduced through the anus and advanced to the terminal ileum. The colonoscopy was performed without difficulty. The patient tolerated the procedure well. The quality of the bowel preparation was good. Scope In: 6:52:53 AM Scope Withdrawal Time 0 hours 7 minutes 1 second Scope Out: 7:04:13 AM Total Procedure Duration Time 0 hours 11 minutes 20 seconds Findings: The digital rectal exam findings include decreased sphincter tone. The colon (entire examined portion) appeared normal. The distal ileum and terminal ileum contained multiple four mm ulcers. No bleeding was present. No stigmata of recent bleeding were seen. Biopsies were taken with a cold forceps for histology. Verification of patient identification for the specimen was done. Estimated blood loss was minimal. Impression: - Decreased sphincter tone found on digital rectal exam. - The entire examined colon is normal. - Multiple ulcers in the distal ileum and in the terminal ileum. Biopsied. Recommendation: - Discharge patient to home. - Resume previous diet. - Continue present medications. - Await pathology results. - Repeat colonoscopy in 1 year for surveillance based on pathology results. - Return to GI office. Procedure Code(s): --- Professional --- 30020, Colonoscopy, flexible; with biopsy, single or multiple CPT copyright 2017 [employer]. All rights reserved. The codes documented in this report are preliminary and upon lining setter review may be revised to meet current compliance requirements. Edgar Easley DO 07/01/2022 7:15:32 AM This report has been signed electronically. Number of Addenda: 0 Note Initiated On: 07/01/2022 6:51 AM
== END 2022-07-01 07:54 | disposition home or self-care (01) ==
LOC: EN 05:32 → AC 05:33
PROVIDERS: Anesthesiology; Visit Provider Internal Medicine Gastroenterology
PROC: 0DJD8ZZ Inspection of Lower Intestinal Tract, Via Natural or Artificial Opening Endoscopic (ICD-10-PCS; CPT 45378; principal; 2022-07-01 06:25)
DX: K50.00 Crohn's disease of small intestine without complications (principal); K44.9 Diaphragmatic hernia without obstruction or gangrene; R63.4 Abnormal weight loss; F17.200 Nicotine dependence, unspecified, uncomplicated; Z68.1 Body mass index [BMI] 19.9 or less, adult; Z86.16 Personal history of COVID-19
CPT/HCPCS: 45380; 43239; 81025; 88305; J7120; J2405

== ENCOUNTER → 2022-07-05 | Outpatient (CLI) | payer MEDICAID, SELFPAY ==
[2022-07-05 10:40] LABS: Erythrocyte Sedimentation Rate 3 mm/hr (0-30)
[2022-07-05 11:05] LABS: Vitamin B12 398 pg/mL (211-911); Vitamin D,25 Hydroxy 23.5 ng/mL
[2022-07-05 11:12] LABS: CRP < 2.90 mg/L (0.0-3.0); T4 Free Direct 0.89 ng/dL (0.76-1.46); Thyroid Stim Hormone (TSH) 3.17 uIU/mL (0.358-3.74)
[2022-07-08 08:43] LABS: Vitamin D 1,25-Dihydroxy 45.6 pg/mL (24.8-81.5)
== END | disposition home or self-care (01) ==
PROVIDERS: Referring Provider Internal Medicine Gastroenterology; Visit Provider Internal Medicine Gastroenterology
DX: R19.7 Diarrhea, unspecified (principal); R63.4 Abnormal weight loss
CPT/HCPCS: 36415; 82306; 82607; 82652; 84439; 84443; 84481; 85652; 86140

== ENCOUNTER 2022-07-22 17:17 | Emergency (ER) | payer MEDICAID, SELFPAY ==
[2022-07-22 17:18] VITALS: BP 130/87; PULSE 99; RESP 18; TEMP 36; O2SAT 100; BMI 17.8
--- NOTE | 2022-07-22 17:58 | CT_ITS ---
INDICATION: umbilical hernia EXAMINATION: CT ABDOMEN AND PELVIS WITHOUT CONTRAST - CT Abdomen And Pelvis W/O Contrast Injection TECHNIQUE: Helically acquired images were obtained of the abdomen and pelvis without oral or IV contrast. A radiation dose optimization technique was used for this scan. IV Contrast dosage and agent: None. Oral contrast: None. COMPARISON: 03/18/2022 CT abdomen and pelvis. FINDINGS: LOWER CHEST: Lung bases are clear. No cardiomegaly or pericardial effusion. LIVER: Homogeneous. No focal mass. GALLBLADDER AND BILIARY TREE: No calcified gallstones. No gallbladder distension or wall edema. No intra- or extrahepatic biliary ductal dilation. PANCREAS: No focal cystic or solid mass. SPLEEN: Normal size without focal cystic or solid mass. ADRENAL GLANDS: No nodules. KIDNEYS, URETERS and BLADDER: Normal renal size and position. No mass. No hydronephrosis. Bladder is unremarkable. PERITONEUM: No ascites or free air. No other fluid collection. BOWEL: No evidence of acute appendicitis. No abnormally distended bowel loops or air fluid levels. No wall thickening or mass. No focal inflammatory changes. LYMPH NODES: No enlarged mesenteric or retroperitoneal lymph nodes. VESSELS: Aorta is non-dilated. REPRODUCTIVE ORGANS: Normal uterus and right ovary. Left ovary is mildly enlarged, roughly 20 mL in volume with decreased density likely representing ovarian cystic lesion. No follow-up imaging is indicated based on imaging findings. ABDOMINAL WALL: Roughly 6 mm diameter small supraumbilical fascial defect, less than 1 cm cephalad to the umbilicus, is unchanged compared with the prior exam. BONES: No lytic or blastic abnormality. CT/Abdomen/Pelvis without Cont IMPRESSION: 6 mm, supraumbilical fascial defect, unchanged compared to prior exam. Electronically Signed: Walker Swann DO at 20:12 EDT ,
--- NOTE | 2022-07-22 17:59 | EDS_ITS ---
HPI History of Present Illness Chief Complaint: Abd Pain Informant: patient Onset/Context/Timing Onset: Days Timing: Waxes and wanes Current Severity: Mild Maximum Severity: Moderate Narrative Narrative: Patient presents with a painful lump around her umbilicus. She states it seems to be moving. She first noticed it 4 days ago but states the pain seemed to be worse today. She called her GI doctor who advised that she could get an outpatient CT scan or go to the emergency room to get an answer faster. She presented to the ER. She denies fever or chills. She denies vomiting or diarrhea. [facility] Medical History Anemia Anxiety Chest pain Depression Gastric reflux Marijuana use Migraine headache Smoker Wears glasses Home Medications naproxen 500 mg tablet 500 mg PO BID PRN #20 tabs 06/05/22 [Rx Last Taken Unknown] prednisone 20 mg tablet 20 mg PO DAILY #30 tabs 07/05/22 [Rx Last Taken Unknown] tramadol 50 mg tablet 50 mg PO BID PRN pain #30 tabs 07/05/22 [Rx Last Taken Unknown] Allergy/AdvReac Type Severity Reaction Status Date / Time gluten AdvReac Upset Verified 07/22/22 17:18 Stomach Surgical History History of colonoscopy (~06/2022) History of esophagogastroduodenoscopy (EGD) (~06/2022) Hx of colonoscopy Hx of surgical procedure Hx of wisdom tooth extraction Social History Smoking Status: Current every day smoker tobacco type: e-cigarettes ROS ROS ED Constitutional Constitutional ED: Denies chills or fever(s) Eyes Eyes: Denies change in vision or discharge from eye(s) ENT ENT ED: Denies discharge from eye(s), rhinorrhea or sore throat Cardiovascular Cardiovascular: Denies chest pain or palpitations Respiratory/Chest Respiratory/Chest: Denies cough or dyspnea Gastrointestinal Gastrointestinal: Reports abdominal pain; Denies diarrhea, nausea or vomiting Genitourinary Genitourinary ED: Denies difficulty urinating or dysuria Musculoskeletal Musculoskeletal: Denies back pain or extremity pain Integumentary Denies Abrasions or rash Neurologic Neurologic: Denies headache(s) or weakness Psychiatric Psychiatric: Denies anxiety or depression Allergic/Immunologic Allergic/Immunologic ED: Denies lip swelling or urticaria EXAM Physical Exam Const Vital Signs: 07/22/22 17:18 Temperature 96.8 F L Temperature Source Temporal Pulse Rate 99 Respiratory Rate 18 Blood Pressure 130/87 H Blood Pressure Mean 101 Pulse Ox 100 Oxygen Delivery Method Room Air Positive well nourished and well developed General Appearance ED: well developed HEENT Reports normocephalic and head/scalp atraumatic Eyes PERRL and EOMs intact bilaterally Neck supple Chest Wall inspection of chest normal and palpation of chest normal Resp normal respiratory effort and clear to auscultation bilaterally Cardio regular rate and regular rhythm GI GI Narrative: Small painful mass at the base of the umbilicus. No overlying skin changes. Palpation: soft Extremity normal to inspection Neuro oriented x3 and no sensory deficits noted Sensorium / Orientation: alert Motor Exam: strength 5/5 throughout Psych mental status grossly normal Skin no rashes or lesions noted MDM MDM MDM Narrative Medical decision making narrative: Patient given Toradol for pain. Lab work obtained along with a CT flank. Lab Data Attestation: I reviewed the patient's lab results. Labs: Laboratory Results - last 24 hr 07/22/22 07/22/22 07/22/22 18:00 18:00 18:00 WBC 12.8 H RBC 4.41 Hgb 11.7 L Hct 36.8 L MCV 83.4 MCH 26.5 L MCHC 31.8 L RDW Std Deviation 45.6 H RDW Coeff of Marino 14.9 H Plt Count 226 MPV 11.1 Immature Gran % (Auto) 0.400 Neut % (Auto) 80.1 H Lymph % (Auto) 14.7 L Tucker % (Auto) 4.5 Eos % (Auto) 0.1 Baso % (Auto) 0.2 Absolute Neuts (auto) 10.2 H Absolute Lymphs (auto) 1.87 Nucleated RBC % 0 Sodium 141 Potassium 3.7 Chloride 107 Carbon Dioxide 30.0 Anion Gap 4 L BUN 9 Creatinine 0.48 L Estim Creat Clear Calc 150.07 Est GFR (MDRD) Af Amer 207 Est GFR (MDRD) Non-Af 171 BUN/Creatinine Ratio 18.7 Glucose 86 Calcium 9.3 Serum , Qual NEGATIVE Radiography Diagnostic Testing: Clinical Impression(s) from Imaging Studies Abdomen/Pelvis CT 07/22/22 17:58 IMPRESSION: 6 mm, supraumbilical fascial defect, unchanged compared to prior exam. Electronically Signed: Walker Swann DO at 20:12 EDT , Treatment and Re-Evaluation Narrative: White count is slightly elevated at 12.8 with 80% neutrophils. Chemistry studies unremarkable. test negative. CT flank reveals a 6 mm supraumbilical fascial defect that is unchanged compared to prior exam. Per my interpretation there is no evidence of intestine in the defect. Patient is reassured with findings and will follow up with Dr Easley as needed. Discharge Plan Triage Chief Complaint: Abd Pain ED Provider: Janette Espinoza Dx/Rx/DC Orders Clinical Impression: Abdominal pain, Hernia Instructions: ED Hernia (Adult) Prescriptions: No Action prednisone 20 mg tablet 20 mg PO DAILY Qty: 30 1RF tramadol 50 mg tablet 50 mg PO BID PRN (Reason: pain) Qty: 30 0RF naproxen 500 mg tablet 500 mg PO BID PRN Qty: 20 0RF Primary Care Provider: Care Physician,No Primary Referrals: Edgar Easley DO [Med Staff - Active Staff] - As Needed Care Physician,No Primary [Primary Care Provider] - Disposition Disposition: Home, Self Care
[2022-07-22 18:12] LABS: Absolute Lymphocyte Count 1.87 X10^3/uL (0.83-4.51); Absolute Neutrophil Count 10.2 X10^3/uL (2.0-7.7); Basophil# 0.02 X10^3/uL; Basophil% 0.2 % (0-1); Eosinophil# 0.01 X10^3/uL; Eosinophils% 0.1 % (0-5); Hematocrit 36.8 % (37-47); Hemoglobin 11.7 g/dL (12.0-15.0); Lymphocyte # 1.87 X10^3/ul (0.83-4.51); Lymphocyte % 14.7 % (19-41); Mean Corp Hgb Conc 31.8 g/dL (32-36); Mean Corpuscular Hgb 26.5 pg (27.0-32.0); Mean Corpuscular Volume 83.4 fL (81-99); Mean Platelet Vol. 11.1 fl (6.2-12.0); Monocyte# 0.57 X10^3/uL; Monocyte% 4.5 % (0-10); NRBC Flagged by Analyzer 0 % (0-5); Neutrophil # 10.23 X10^3/uL (2.7-7.7); Neutrophil % 80.1 % (47-70); Platelet Count 226 K/mm3 (150-450); RBC Distribution Width CV 14.9 % (11.6-14.6); RBC Distribution Width SD 45.6 fl (35.1-43.9); Red Blood Count 4.41 M/mm3 (4.2-5.4); White Blood Count 12.8 K/mm3 (4.4-11.0)
[2022-07-22] MEDS: Ketorolac 30 MG/ML Syringe IV (18:12)
[2022-07-22 18:26] LABS: Anion Gap 4 (5-15); BUN 9 mg/dL (7-18); BUN/Creat Ratio 18.7 RATIO (10-20); Calcium,Total 9.3 mg/dL (8.5-10.1); Chloride 107 mmol/L (98-107); Creatinine, Serum 0.48 mg/dL (0.55-1.02); EST Glomerular Filtration Rate 171 mL/min (>60); Est Glom Filt Rate - Afr Amer 207 mL/min (>60); Estimated Creatinine Clearance 150.07 ml/min; Glucose 86 mg/dL (74-106); Potassium 3.7 mmol/L (3.5-5.1); Sodium Level 141 mmol/L (136-145)
--- NOTE | 2022-07-22 18:31 | CM.ED ---
SW Note Referral Source: Case Find Referral Reason: No Primary Care Physician (PCP) SW reviewed chart and noted that patient has no PCP. SW provided patient with list of [facility] and [facility] Physician List for reference. SW also provided patient with handout ?Where to go When?. No other issues or concerns voiced at this time. SW remains available for any additional needs. Plan: Provided patient with PCP information Judith WILHELM
[2022-07-22 19:33] LABS: Internal QC Validated? YES +Cl - CLEAR BKGD; Pregnancy, Serum, hCG Quali. NEGATIVE Negative
[2022-07-22 20:30] VITALS: PULSE 67; RESP 15; O2SAT 99
== END 2022-07-22 20:35 | disposition home or self-care (01) ==
PROVIDERS: Emergency Provider Emergency Medicine; Visit Provider Emergency Medicine
DX: K46.9 Unspecified abdominal hernia without obstruction or gangrene (principal); F17.290 Nicotine dependence, other tobacco product, uncomplicated
CPT/HCPCS: 74176; 80048; 84703; 85025; 96374; 99283; A4216

== ENCOUNTER 2022-08-16 05:51 | Day surgery (SDC) | payer MEDICAID, SELFPAY ==
[2022-08-16 06:32] LABS: Internal QC Validated? YES +Cl - CLEAR BKGD; Pregnancy, Urine Negative Negative
[2022-08-16 06:33] VITALS: BP 96/71; PULSE 65; RESP 16; TEMP 36.3; O2SAT 99; BMI 18.6
[2022-08-16] MEDS: Lactated Ringers 1,000 ML 15 ML IV (06:48)
[2022-08-16] MEDS: Cefazolin 2 GM in 0.9% Normal Saline 100 ML IV (07:28)
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
[2022-08-16] MEDS: Bupivacaine 0.25% 30 ML Vial (08:22)
--- NOTE | 2022-08-16 08:47 | PCM.OPRPT ---
Problems Associated Problem List Diagnoses (1) Umbilical hernia: Report of Operation Date of Procedure: 08/16/22 Pre-Operative Diagnosis: Umbilical hernia Post-Operative Diagnosis: Umbilical hernia with chronically incarcerated fat Surgery/Procedure Performed:: Open umbilical hernia with primary repair Description of Surgical Findings:: ? Umbilical hernia defect measuring 0.9 cm longitudinally with a small tuft of chronically incarcerated fat Surgeon: Walker Man garment alteration examiner: Janie Perrin Type of Anesthesia: General/Supplemental Anesthesiologist: Jc Flynn Specimen's removed: NA Estimated Blood Loss (mL): 10 Description of Procedure: After appropriate identification in the preoperative holding area patient was brought to the operating room where she was positioned supine on the operating room table. Preoperative antibiotics were administered during this time. Patient was then induced with a general anesthetic and her abdomen was prepped and draped in usual sterile fashion. A formal timeout was conducted to confirm both patient and the procedure amongst those present. I palpated a small tuft of fat along the right lower quadrant of patient's umbilicus and therefore I elected to use a infraumbilical curvilinear incision to access the hernia defect. I performed a local block along this tissue using 0.25% Marcaine. This incision was made sharply and deepened down through the dermis and subcu tissue with use of electrocautery. I used a hemostat to bluntly dissect out and encircle the umbilical stalk taking great care to avoid injury to the overlying skin as I sharply freed it from the underlying hernia sac. Once this umbilical skin was retracted cephalad we were able to visualize patient's fascial defect. This measured 0.9 cm (longitudinally) x 0.7 cm (width). The anterior surface of the fascia was cleared of soft tissue attachments using blunt dissection and selective electrocautery. Placing a fine hemostat within the defect there did not appear to be any hernia contents further adherent to the inner aspect of the fascial defect so I began closure of this defect. This was accomplished with interrupted 0 Ethibond suture in a [id number]-[id number] fashion. A total of 2 sutures were required. Additional local anesthetic was injected into the fascia for a total volume of 22 mL. The skin of the umbilical stalk was tacked down to the fascia with a 3-0 Vicryl. The same 3-0 Vicryl was used to perform a number of interrupted sutures along Maxx's fascia and the dermis to reapproximate the wound and close down some of the space from our dissection down to the fascia. Lastly, a 4-0 Monocryl was used to close the skin in a running subcuticular technique. Dermabond was applied to seal the wound and a rolled Telfa was placed into the umbilical concavity. A OpSite dressing was placed atop this and the area around the Telfa roll was evacuated to provide a bit of a compressive dressing. This concluded the case and the patient was allowed to awaken from general anesthetic. She was taken to PACU for ongoing recovery. Complications None Admit VTE Documentation VTE Mechan Device Prophylaxis: SCD's Procedures Digestive 40xxx-49xxx: 31110 Rpr umbil gentry reduc > 5 yr
--- NOTE | 2022-08-16 08:56 | DCINST_ITS ---
Discharge Instructions Diet Discharge Diet: No restrictions Activity May shower in (days): 1 Ice area for (Minutes): 20 Lifting Restrictions: No lifting greater than 15 pounds for 4 weeks after surgery Dressing / Incision Call your doctor if your incision/area has: Continuous Slow Oozing, Sudden Increased Bleeding, Increased Pain/ Swelling, Increased Redness, Foul Smelling Discharge and Swelling at the incision site Call your doctor if you observe: Fever of 101 or Higher Remove Dressing in: 5 days (Outer OpSite dressing, but okay to get wet in shower before-is no submerging) Cleanse incision/area with: Soap & Water Follow Up Care Please Follow Up With: Walker Man MD When: 10 days postop Test Results: Test results from this visit will be discussed in further detail at your follow- up appointment, if applicable. Discharge Plan Admission Primary Reason for Your Visit: Umbilical hernia repair Attending Provider: Walker Man Primary Care Provider: Care Physician,No Primary Consulting Providers: Ramon Parker Discharge Orders/Prescriptions Prescriptions: New oxycodone 5 mg tablet 5 mg PO Q6H PRN (Reason: pain) 5 Days Qty: 14 0RF Referrals / Follow Up: Care Physician,No Primary [Primary Care Provider] - Disposition Disposition (needs filled in before D/C Order can be placed): Home, Self Care
[2022-08-16 09:03] VITALS: BP 105/75; BP 96/71; PULSE 73; RESP 18; TEMP 36.2; O2SAT 94
[2022-08-16 09:15] VITALS: BP 96/71; BP 96/72; PULSE 64; RESP 15; O2SAT 100
[2022-08-16 09:30] VITALS: BP 101/76; BP 96/71; PULSE 56; RESP 16; TEMP 36.1; O2SAT 100
[2022-08-16] MEDS: oxyCODONE 5 MG Tablet PO (10:22)
[2022-08-16 10:36] VITALS: BP 95/68; BP 96/71; PULSE 64; RESP 14; TEMP 36.2; O2SAT 100
== END 2022-08-16 10:39 | disposition home or self-care (01) ==
LOC: SDC 05:51 → AC 05:52
PROVIDERS: Anesthesiology; Referring Provider Surgery; Visit Provider Surgery
PROC: (CPT 49587; principal; 2022-08-16 07:15)
DX: K42.0 Umbilical hernia with obstruction, without gangrene (principal); K50.90 Crohn's disease, unspecified, without complications; K55.1 Chronic vascular disorders of intestine; F17.290 Nicotine dependence, other tobacco product, uncomplicated
CPT/HCPCS: 49587; 00750; 81025; 87077; 87081; J7120; J2405

== ENCOUNTER 2022-09-28 11:56 | Emergency (ER) | payer MEDICAID, SELFPAY ==
[2022-09-28 11:57] VITALS: BP 136/84; PULSE 99; RESP 20; TEMP 36.1; O2SAT 97; BMI 17.2
--- NOTE | 2022-09-28 12:04 | RAD_ITS ---
EXAM: XR CHEST, 2 VIEWS CLINICAL INDICATION: COUGH AND SOB TECHNIQUE: Frontal and lateral views of the chest. This report was created using Prompt[employer] report generation technology. COMPARISON: XR Chest dated 04/09/2022 FINDINGS: LUNGS AND PLEURAL SPACES: Normal. No consolidation or edema. No pneumothorax. No effusion. HEART: Normal heart size. MEDIASTINUM: No mediastinal or hilar mass. BONES/JOINTS: No acute abnormality. SOFT TISSUES: Normal. RAD/Chest PA and Lateral IMPRESSION: No acute cardiopulmonary abnormality. No interval change. Electronically Signed: Bryan Oro MD at 12:24 EST ,
[2022-09-28 15:36] VITALS: BP 120/89; PULSE 73; RESP 15; O2SAT 100
--- NOTE | 2022-09-28 15:48 | EKG12_ITS ---
Test Reason : SOB Blood Pressure : / mmHG Vent. Rate : 063 BPM Atrial Rate : 063 BPM P-R Int : 186 ms QRS Dur : 076 ms QT Int : 444 ms P-R-T Axes : 016 066 042 degrees QTc Int : 454 ms Normal sinus rhythm Normal ECG Confirmed by ARYA CRUZ, JOHANN ([id number]), video news editor AYLIN SCHAEFFER ([id number]) on 09/30/2022 1:11:03 PM Referred By: Confirmed By:JOHANN KOENIG MD
--- NOTE | 2022-09-28 15:50 | EX.ED.DYSGE1 ---
HPI History of Present Illness Chief Complaint: Shortness of Breath Informant: patient Narrative Narrative: 22-year-old female presenting with URI symptoms. She states this started approximately one week ago. Her roommate is also ill. She went to urgent care they told her she likely had RSV. She complains of fever, cough, chest heaviness. Chest heaviness has been constant for several days. She complains of shortness of breath. She has tried Tylenol without relief. She states she is unable to take ibuprofen due to her Crohn's disease. Prior similar symptoms: Yes Recent Illness/Hospitalization: No PFSH PFSH Medical History Anemia Anxiety Depression History of Crohn's disease History of ulceration Marijuana use Migraine headache Non-smoker Wears glasses Allergy/AdvReac Type Severity Reaction Status Date / Time gluten AdvReac Upset Verified 09/28/22 11:59 Stomach Surgical History History of colonoscopy (~06/2022) History of esophagogastroduodenoscopy (EGD) (~06/2022) History of umbilical hernia repair Hx of colonoscopy Hx of surgical procedure Hx of wisdom tooth extraction Social History Smoking Status: Current every day smoker tobacco type: e-cigarettes ROS ROS ED Constitutional Constitutional ED: Reports fever(s) Eyes Eyes: Denies change in vision ENT ENT ED: Reports rhinorrhea and sore throat Cardiovascular Cardiovascular: Reports chest pain; Denies palpitations Respiratory/Chest Respiratory/Chest: Reports cough and dyspnea Gastrointestinal Gastrointestinal: Reports diarrhea; Denies abdominal pain, nausea or vomiting Genitourinary Genitourinary ED: Denies dysuria Musculoskeletal Musculoskeletal: Denies myalgias Integumentary Denies rash Neurologic Neurologic: Denies headache(s) Psychiatric Psychiatric: Denies suicidal thoughts EXAM Physical Exam Const Vital Signs: 09/28/22 11:57 09/28/22 15:36 09/28/22 15:36 Temperature 97.0 F L Temperature Source Temporal Pulse Rate 99 73 Respiratory Rate 20 H 15 Respiratory Effort Short of Breath Labored Nasal Flaring Respiratory Depth Shallow Blood Pressure 136/84 H 120/89 H Blood Pressure Mean 101 99 Pulse Ox 97 100 Oxygen Delivery Method Room Air Room Air Room Air Positive well nourished and well developed General Appearance ED: well developed HEENT Reports normocephalic and head/scalp atraumatic Eyes PERRL and EOMs intact bilaterally Neck supple Neck Narrative: No meningismus General: Negative for tenderness Chest Wall inspection of chest normal Resp normal respiratory effort and clear to auscultation bilaterally Cardio regular rate and regular rhythm GI non-tender and non-distended Palpation: soft; Negative for guarding or rebound tenderness present no CVA tenderness Extremity normal to inspection General Extremety ED: Negative for edema General Extremity: Negative for edema Neuro oriented x3 Sensorium / Orientation: alert Motor Exam: strength 5/5 throughout Psych mental status grossly normal MDM MDM MDM Narrative Medical decision making narrative: Chest x-ray read by myself and radiology shows no acute process. COVID, influenza negative. EKG is normal sinus rhythm rate of 63 with no acute ischemic changes. CBC, chemistries unremarkable other than potassium 2.8. Patient states her potassium is always low and declines potassium replacement. D-dimer is negative. Troponin is negative. negative. Patient is resting comfortably on reevaluation. She has no hypoxia. She will follow up with her primary care physician. Advised return to ED for worsening complaints. Lab Data Attestation: I reviewed the patient's lab results. Labs: Laboratory Results - last 24 hr 09/28/22 09/28/22 09/28/22 15:55 15:55 15:55 WBC 8.0 RBC 4.93 Hgb 13.0 Hct 40.8 MCV 82.8 MCH 26.4 L MCHC 31.9 L RDW Std Deviation 41.5 RDW Coeff of [place] 13.8 Plt Count 212 MPV 11.6 Immature Gran % (Auto) 0.300 Neut % (Auto) 71.8 H Lymph % (Auto) 22.7 [place] % (Auto) 4.3 Eos % (Auto) 0.4 Baso % (Auto) 0.5 Absolute Neuts (auto) 5.7 Absolute Lymphs (auto) 1.81 Nucleated RBC % 0 D-Dimer Quant (PE/DVT) < 0.27 L Sodium 139 Potassium 2.8 L Chloride 106 Carbon Dioxide 26.0 Anion Gap 7 BUN 6 L Creatinine 0.55 Estim Creat Clear Calc 126.38 Est GFR (MDRD) Af Amer 178 Est GFR (MDRD) Non-Af 147 BUN/Creatinine Ratio 10.9 Glucose 86 Calcium 9.2 Troponin I High Sens < 3 L Serum , Qual 09/28/22 15:55 WBC RBC Hgb Hct MCV MCH MCHC RDW Std Deviation RDW Coeff of [place] Plt Count MPV Immature Gran % (Auto) Neut % (Auto) Lymph % (Auto) [place] % (Auto) Eos % (Auto) Baso % (Auto) Absolute Neuts (auto) Absolute Lymphs (auto) Nucleated RBC % D-Dimer Quant (PE/DVT) Sodium Potassium Chloride Carbon Dioxide Anion Gap BUN Creatinine Estim Creat Clear Calc Est GFR (MDRD) Af Amer Est GFR (MDRD) Non-Af BUN/Creatinine Ratio Glucose Calcium Troponin I High Sens Serum , Qual NEGATIVE Radiography Chest X-Ray - ED: 1 View, Read by ED Physician and Read by Radiologist Diagnostic Testing: Clinical Impression(s) from Imaging Studies Chest X-Ray 09/28/22 12:04 IMPRESSION: No acute cardiopulmonary abnormality. No interval change. Electronically Signed: Bryan Oro MD at 12:24 EST , EKG Initial EKG: Attestation: I personally reviewed and interpreted this EKG as follows: Interpretation: Sinus Rhythm and No Acute Injury Pattern Discharge Plan Triage Chief Complaint: Shortness of Breath ED Provider: Eugenie Gonzalez Dx/Rx/DC Orders Clinical Impression: URI (upper respiratory infection), Atypical chest pain Instructions: ED URI, Viral, No Abx (Adult) Primary Care Provider: Care Physician,No Primary Referrals: Care Physician,No Primary [Primary Care Provider] - Disposition Disposition: Home, Self Care
[2022-09-28 16:07] LABS: Absolute Lymphocyte Count 1.81 X10^3/uL (0.83-4.51); Absolute Neutrophil Count 5.7 X10^3/uL (2.0-7.7); Basophil# 0.04 X10^3/uL; Basophil% 0.5 % (0-1); Eosinophil# 0.03 X10^3/uL; Eosinophils% 0.4 % (0-5); Hematocrit 40.8 % (37-47); Lymphocyte # 1.81 X10^3/ul (0.83-4.51); Lymphocyte % 22.7 % (19-41); Mean Corp Hgb Conc 31.9 g/dL (32-36); Mean Corpuscular Hgb 26.4 pg (27.0-32.0); Mean Corpuscular Volume 82.8 fL (81-99); Mean Platelet Vol. 11.6 fl (6.2-12.0); Monocyte# 0.34 X10^3/uL; Monocyte% 4.3 % (0-10); NRBC Flagged by Analyzer 0 % (0-5); Neutrophil # 5.73 X10^3/uL (2.7-7.7); Neutrophil % 71.8 % (47-70); Platelet Count 212 K/mm3 (150-450); RBC Distribution Width CV 13.8 % (11.6-14.6); RBC Distribution Width SD 41.5 fl (35.1-43.9); Red Blood Count 4.93 M/mm3 (4.2-5.4)
[2022-09-28 16:17] LABS: Internal QC Validated? YES +Cl - CLEAR BKGD; Pregnancy, Serum, hCG Quali. NEGATIVE Negative
[2022-09-28 16:23] LABS: D-Dimer Quantitative (DVT/PE) < 0.27 FEU/ug/m (0.27-0.49)
[2022-09-28 16:24] LABS: Anion Gap 7 (5-15); BUN 6 mg/dL (7-18); BUN/Creat Ratio 10.9 RATIO (10-20); Calcium,Total 9.2 mg/dL (8.5-10.1); Chloride 106 mmol/L (98-107); Creatinine, Serum 0.55 mg/dL (0.55-1.02); EST Glomerular Filtration Rate 147 mL/min (>60); Est Glom Filt Rate - Afr Amer 178 mL/min (>60); Estimated Creatinine Clearance 126.38 ml/min; Glucose 86 mg/dL (74-106); Potassium 2.8 mmol/L (3.5-5.1); Sodium Level 139 mmol/L (136-145); Troponin-I HS < 3 pg/mL (3.0-54.0)
--- NOTE | 2022-09-28 17:06 | ED.RN ---
Patient refuses IV potassium. Dr. Gonzalez aware. When asked if patient will be getting a Rx for potassium Dr. Gonzalez states she is not. Patient educated on increasing her potassium intacke and following up with her PCP.
[2022-09-28 17:10] VITALS: BP 110/76; PULSE 72; RESP 16; O2SAT 98
== END 2022-09-28 17:11 | disposition home or self-care (01) ==
PROVIDERS: Emergency Provider Emergency Medicine; Visit Provider Emergency Medicine
DX: J06.9 Acute upper respiratory infection, unspecified (principal); R06.02 Shortness of breath; R07.89 Other chest pain; F17.290 Nicotine dependence, other tobacco product, uncomplicated; Z20.822 Contact with and (suspected) exposure to COVID-19
CPT/HCPCS: 71046; 80048; 84484; 84703; 85025; 85379; 87428; 93005; 99283; A4216

== ENCOUNTER 2022-10-06 13:03 | Emergency (ER) | payer MEDICAID, SELFPAY ==
[2022-10-06 13:04] VITALS: BP 116/77; PULSE 100; RESP 15; TEMP 37.1; O2SAT 100; BMI 18.3
--- NOTE | 2022-10-06 13:20 | EDS_ITS ---
HPI History of Present Illness Chief Complaint: General Illness Detail of Chief Complaint: Cough, headache, body aches Informant: patient Onset/Context/Timing Onset: Days (2 to 3 days) Context: Gradual Onset Current Severity: Moderate Maximum Severity: Moderate Narrative Narrative: Patient presents secondary to cough, headache, body aches. She states she had a temperature up to 104. She reported had a known exposure to COVID yesterday and has not tested. PFSH PFS Medical History Anemia Anxiety Depression History of Crohn's disease History of ulceration Marijuana use Migraine headache Non-smoker Wears glasses Allergy/AdvReac Type Severity Reaction Status Date / Time gluten AdvReac Upset Verified 10/06/22 13:04 Stomach Surgical History History of colonoscopy (~06/2022) History of esophagogastroduodenoscopy (EGD) (~06/2022) History of umbilical hernia repair Hx of colonoscopy Hx of surgical procedure Hx of wisdom tooth extraction Social History Smoking Status: Current every day smoker tobacco type: e-cigarettes ROS ROS ED Constitutional Constitutional ED: Reports fever(s) Eyes Eyes: Denies change in vision or discharge from eye(s) ENT ENT ED: Denies discharge from eye(s), rhinorrhea or sore throat Cardiovascular Cardiovascular: Denies chest pain or palpitations Respiratory/Chest Respiratory/Chest: Reports cough and dyspnea Gastrointestinal Gastrointestinal: Denies abdominal pain, nausea or vomiting Genitourinary Genitourinary ED: Denies dysuria Musculoskeletal Musculoskeletal: Reports myalgias; Denies back pain or extremity pain Integumentary Denies Abrasions or rash Neurologic Neurologic: Reports headache(s) and paresthesias; Denies weakness Psychiatric Psychiatric: Denies anxiety or depression Allergic/Immunologic Allergic/Immunologic ED: Denies lip swelling or urticaria EXAM Physical Exam Const Vital Signs: 10/06/22 13:04 10/06/22 13:12 Temperature 98.7 F Temperature Source Temporal Pulse Rate 100 Respiratory Rate 15 Respiratory Effort Normal Respiratory Pattern Normal Blood Pressure 116/77 Blood Pressure Mean 90 Pulse Ox 100 Oxygen Delivery Method Room Air Positive well nourished and well developed General Appearance ED: well developed HEENT Reports normocephalic and head/scalp atraumatic Eyes PERRL and EOMs intact bilaterally Neck supple Chest Wall inspection of chest normal and palpation of chest normal Resp normal respiratory effort and clear to auscultation bilaterally Cardio regular rate and regular rhythm GI normal to inspection, nondistended, normoactive bowel sounds Palpation: soft Extremity normal to inspection Neuro oriented x3 and no sensory deficits noted Sensorium / Orientation: alert Motor Exam: strength 5/5 throughout Psych mental status grossly normal Skin no rashes or lesions noted MDM MDM MDM Narrative Medical decision making narrative: Patient given a dose of naproxen. Swab for COVID and flu obtained along with chest x-ray. Radiography Chest X-Ray - ED: 2 View, Read by ED Physician, Normal, Heart, Lungs, Mediastinum and No Infiltrates Diagnostic Testing: Clinical Impression(s) from Imaging Studies Chest X-Ray 10/06/22 13:35 IMPRESSION: Normal x-ray examination of the chest. Electronically Signed: Sinan Carrion MD at 13:45 EST , Treatment and Re-Evaluation Narrative: 2 view chest x-ray per my interpretation reveals no focal infiltrate. Radiology interpretation is reviewed and agrees. Patient's COVID test is negative. Her flu test is positive for influenza A. Test results are discussed with patient and friend at bedside. She was already ill 48 hours ago so is therefore outside the window for Tamiflu. Supportive care is discussed along with return instructions. Discharge Plan Triage Chief Complaint: General Illness ED Provider: Janette Espinoza Dx/Rx/DC Orders Clinical Impression: Influenza A Instructions: ED Influenza (Adult) Primary Care Provider: Care Physician,No Primary Referrals: Fast,Kassie, DO [Med Staff - Nurs[employer] Teacher] - As Needed Care Physician,No Primary [Primary Care Provider] - Disposition Disposition: Home, Self Care
--- NOTE | 2022-10-06 13:35 | RAD_ITS ---
STUDY: X-RAY CHEST REASON FOR EXAM: Female, 22 years old. cough TECHNIQUE: PA and lateral views of the chest. COMPARISON: 09/28/2022 FINDINGS: The lungs are clear and expanded. There is no demonstrated pleural abnormality. Normal size heart. Normal mediastinum and jomar. Normal visualized pulmonary arteries. Normal visualized aortic arch and descending thoracic aorta. Normal visualized thoracic spine. Normal visualized ribs, clavicles, and shoulders. There is no demonstrated abnormality of the visualized soft tissue structures of the upper abdomen. RAD/Chest PA and Lateral IMPRESSION: Normal x-ray examination of the chest. Electronically Signed: Sinan Carrion MD at 13:45 EST ,
[2022-10-06] MEDS: Naproxen 500 MG Tablet PO (13:42)
== END 2022-10-06 14:18 | disposition home or self-care (01) ==
PROVIDERS: Emergency Provider Emergency Medicine; Visit Provider Emergency Medicine
DX: J10.1 Influenza due to other identified influenza virus with other respiratory manifestations (principal); F17.290 Nicotine dependence, other tobacco product, uncomplicated; Z20.822 Contact with and (suspected) exposure to COVID-19
CPT/HCPCS: 71046; 87428; 99283

== ENCOUNTER 2022-10-09 11:47 | Emergency (ER) | payer MEDICAID, SELFPAY ==
[2022-10-09 11:48] VITALS: BP 100/80; PULSE 88; RESP 17; TEMP 36.4; O2SAT 100; BMI 38.6
--- NOTE | 2022-10-09 12:34 | CT_ITS ---
STUDY: CT ABDOMEN AND PELVIS WITH CONTRAST REASON FOR EXAM: Female, 22 years old. Pain, ?hernia -- IV PO Contrast RADIATION DOSAGE (If Supplied By Facility): CTDIvol = ( 12.57 ) mGy, DLP = ( 270.56 ) mGycm TECHNIQUE: Transaxial images were obtained from the dome of the diaphragm to the symphysis pubis with oral contrast. IV 75mL Isovue-[id number] was administered. Sagittal and coronal images were reconstructed. Individualized dose optimization techniques were used for this CT. COMPARISON: CT abdomen and pelvis July 22, 2022, March 18, 2022 CT abdomen and pelvis. FINDINGS: The visualized lung bases are unremarkable. The visualized portions of the heart are within normal limits. Normal liver. Normal gallbladder and extrahepatic biliary system. Normal spleen. Normal pancreas. Normal bilateral adrenal glands. Normal right kidney. Normal left kidney. Normal visualized stomach. Normal small intestine. There is moderate stool in the colon. This is seen from the cecum to the rectum. The appendix is visualized and appears normal. Normal abdominal aorta. Normal inferior vena cava. Normal retroperitoneum. Normal urinary bladder. Normal visualized uterus. There is a small left ovarian follicle measuring 1 cm. Is a minimal amount of free fluid in the left side of the pelvis. The left ovarian cyst seen on prior study is smaller. Again noted is a minimal opening within the abdominal wall in which a minimal amount of fat herniates measuring approximately 1 cm. This is stable since prior study. There is mild thickening of the soft tissue of the there is a suggestion of mild thickening of the soft tissues at the level of the umbilicus. CT/Abdomen/Pelvis WITH Contrast IMPRESSION: 1 cm fatty umbilical hernia stable since multiple prior studies. This Does not contain bowel.. Stable mild skin thickening at the level of the umbilicus recommend direct visualization. Constipation. No appendicitis. No visualized hydronephrosis. Trace amount of free fluid in the pelvis. Interval resolved with a left ovarian cyst since prior study. Small left ovarian follicle. Electronically Signed: Naomi Sprague MD at 14:59 EST ,
[2022-10-09 12:55] LABS: Absolute Lymphocyte Count 1.09 X10^3/uL (0.83-4.51); Absolute Neutrophil Count 1.5 X10^3/uL (2.0-7.7); Basophil# 0.01 X10^3/uL; Basophil% 0.3 % (0-1); Eosinophil# 0.04 X10^3/uL; Eosinophils% 1.3 % (0-5); Hematocrit 40.7 % (37-47); Hemoglobin 13.5 g/dL (12.0-15.0); Lymphocyte # 1.09 X10^3/ul (0.83-4.51); Lymphocyte % 36.5 % (19-41); Mean Corp Hgb Conc 33.2 g/dL (32-36); Mean Corpuscular Hgb 27.4 pg (27.0-32.0); Mean Corpuscular Volume 82.7 fL (81-99); Mean Platelet Vol. 12.1 fl (6.2-12.0); Monocyte# 0.32 X10^3/uL; Monocyte% 10.7 % (0-10); NRBC Flagged by Analyzer 0 % (0-5); Neutrophil # 1.53 X10^3/uL (2.7-7.7); Neutrophil % 51.2 % (47-70); Platelet Count 117 K/mm3 (150-450); RBC Distribution Width CV 13.8 % (11.6-14.6); RBC Distribution Width SD 41.7 fl (35.1-43.9); Red Blood Count 4.92 M/mm3 (4.2-5.4)
[2022-10-09 13:05] LABS: Internal QC Validated? YES +Cl - CLEAR BKGD; Pregnancy, Serum, hCG Quali. NEGATIVE Negative
[2022-10-09 13:13] LABS: ALB/GLOB Ratio 1.2 RATIO (0.9-2.4); AST(SGOT) 20 U/L (15-37); Alanine Aminotransfer ALT/SGPT 14 U/L (13-56); Albumin, Serum 3.7 g/dL (3.2-5.0); Alkaline Phosphatase 32 U/L (45-117); Anion Gap 7 (5-15); BUN 9 mg/dL (7-18); BUN/Creat Ratio 16.7 RATIO (10-20); Calcium,Total 8.4 mg/dL (8.5-10.1); Chloride 107 mmol/L (98-107); Creatinine, Serum 0.54 mg/dL (0.55-1.02); EST Glomerular Filtration Rate 150 mL/min (>60); Est Glom Filt Rate - Afr Amer 182 mL/min (>60); Estimated Creatinine Clearance 158.91 ml/min; Globulin 3.2 g/dL (2.2-4.2); Glucose 90 mg/dL (74-106); Potassium 3.5 mmol/L (3.5-5.1); Protein, Total 6.9 g/dL (6.4-8.2); Sodium Level 142 mmol/L (136-145)
[2022-10-09] MEDS: 0.9% Normal Saline 1,000 ML 1000 ML IV (13:17)
[2022-10-09] MEDS: Morphine 4 MG/ML Syringe IV (13:18)
[2022-10-09] MEDS: Ondansetron 4 MG/2 ML Vial IV (13:18)
--- NOTE | 2022-10-09 13:20 | EDS_ITS ---
HPI History of Present Illness Chief Complaint: Abd Pain Narrative Narrative: Patient presents with periumbilical pain. She was here yesterday and diagnosed with influenza. She states she was not having abdominal pain when she was seen yesterday. She went home and she coughed a lot and now she has pain near her umbilicus. She is concerned because she just had umbilical hernia repair back in early August. She has had mild nausea but no vomiting. But she was having mild nausea and decreased appetite prior to the pain for the last 3 or so days. She states her bowel habits always ranged between liquid stools and what she calls dimes. She has been diagnosed with Crohn's disease but is not on any long-term medicines for this. No urinary symptoms. She does not have diffuse abdominal pain. It is isolated to just at the superior edge of the umbilicus. [facility] Medical History Anemia Anxiety Depression History of Crohn's disease History of ulceration Marijuana use Migraine headache Non-smoker Wears glasses Home Medications hydrocodone-acetaminophen 5-325mg 5mg-325mg 1 tab PO Q6H PRN pain 3 days #10 tabs 10/09/22 [Rx Last Taken Unknown] Allergy/AdvReac Type Severity Reaction Status Date / Time gluten AdvReac Upset Verified 10/09/22 11:47 Stomach Surgical History History of colonoscopy (~06/2022) History of esophagogastroduodenoscopy (EGD) (~06/2022) History of umbilical hernia repair Hx of colonoscopy Hx of surgical procedure Hx of wisdom tooth extraction Social History Smoking Status: Current every day smoker tobacco type: e-cigarettes ROS ROS ED Constitutional Constitutional ED: Reports chills, fever(s) and subjective Eyes Eyes: Denies change in vision ENT ENT ED: Reports rhinorrhea; Denies sore throat Cardiovascular Cardiovascular: Denies chest pain or palpitations Respiratory/Chest Respiratory/Chest: Reports cough; Denies dyspnea Gastrointestinal Gastrointestinal: Reports abdominal pain and nausea; Denies constipation, diarrhea, melena or vomiting Genitourinary Genitourinary ED: Denies dysuria or hematuria Musculoskeletal Musculoskeletal: Reports myalgias; Denies neck pain Integumentary Denies abscess or Abrasions Endocrine Endocrinology: Denies polydipsia or polyuria Hematologic/Lymphatic Hematologic/Lymphatic: Denies easy bleeding or easy bruising Allergic/Immunologic Allergic/Immunologic ED: Denies urticaria EXAM Physical Exam Const Vital Signs: 10/09/22 11:48 Temperature 97.5 F L Temperature Source Temporal Pulse Rate 88 Respiratory Rate 17 Blood Pressure 100/80 Blood Pressure Mean 86 Pulse Ox 100 Oxygen Delivery Method Room Air Positive well nourished and well developed General Appearance ED: well developed and NAD; Negative for pallor HEENT Reports moist mucous membranes Eyes EOMs intact bilaterally General Eye ED: Negative for scleral icterus Neck no lymphadenopathy and no JVD Chest Wall inspection of chest normal Resp normal respiratory effort and clear to auscultation bilaterally Auscultation: Negative for rales, rhonchi or wheezes Cardio regular rate and regular rhythm GI normal to inspection, nondistended, normoactive bowel sounds GI Narrative: Abdomen is thin and nondistended. Bowel sounds are normal. There is no diffuse tenderness. Patient does have some isolated tenderness right at the umbilicus mostly in the superior portion. There does appear to be a approximately 1 and half centimeter area of soft tissue under her incision. It does not seem to easily reduce. However, I was feeling this when the patient coughed and it did also not expand or get larger. But this area is tender. Narrative: No CVA tenderness Back/Spine no CVA tenderness Extremity normal to inspection Neuro oriented x3 Sensorium / Orientation: alert Psych mental status grossly normal Skin no rashes or lesions noted General Skin Exam: Negative for jaundice or pallor MDM MDM MDM Narrative Medical decision making narrative: CT shows no bowel involvement. White count is low but this is likely due to her viral illness. Electrolytes liver function test are all normal urine showed red cells but no sign of infection. I did discuss the case with surgery, Dr. Calvin. Plan will be to follow-up. She may have had a tear of part of the internal incision but there is no bowel involvement. At this point there is only fatty tissue. We did discuss care of this, holding the abdomen when she coughs and reasons to return which would include larger swelling at the area, more pain, changes in bowel habits, fevers or other concerns. She will follow-up with her surgeon. Lab Data Attestation: I reviewed the patient's lab results. Labs: Laboratory Results - last 24 hr 10/09/22 10/09/22 10/09/22 12:26 12:26 12:26 WBC 3.0 L RBC 4.92 Hgb 13.5 Hct 40.7 MCV 82.7 MCH 27.4 MCHC 33.2 RDW Std Deviation 41.7 RDW Coeff of Marino 13.8 Plt Count 117 L MPV 12.1 H Immature Gran % (Auto) 0.000 Neut % (Auto) 51.2 Lymph % (Auto) 36.5 [place] % (Auto) 10.7 H Eos % (Auto) 1.3 Baso % (Auto) 0.3 Absolute Neuts (auto) 1.5 L Absolute Lymphs (auto) 1.09 Nucleated RBC % 0 Sodium 142 Potassium 3.5 Chloride 107 Carbon Dioxide 28.0 Anion Gap 7 BUN 9 Creatinine 0.54 L Estim Creat Clear Calc 158.91 Est GFR (MDRD) Af Amer 182 Est GFR (MDRD) Non-Af 150 BUN/Creatinine Ratio 16.7 Glucose 90 Calcium 8.4 L Total Bilirubin 0.40 AST 20 ALT 14 Alkaline Phosphatase 32 L Total Protein 6.9 Albumin 3.7 Globulin 3.2 Albumin/Globulin Ratio 1.2 Serum , Qual NEGATIVE Urine Color Urine Clarity Urine pH Ur Specific [place] Urine Protein Urine Glucose (UA) Urine Ketones Urine Occult Blood Urine Nitrite Urine Bilirubin Urine Urobilinogen Ur Leukocyte Esterase Urine RBC Urine WBC Ur Squamous Epith Cells Urine Bacteria Urine Mucus 10/09/22 13:55 WBC RBC Hgb Hct MCV MCH MCHC RDW Std Deviation RDW Coeff of [place] Plt Count MPV Immature Gran % (Auto) Neut % (Auto) Lymph % (Auto) [place] % (Auto) Eos % (Auto) Baso % (Auto) Absolute Neuts (auto) Absolute Lymphs (auto) Nucleated RBC % Sodium Potassium Chloride Carbon Dioxide Anion Gap BUN Creatinine Estim Creat Clear Calc Est GFR (MDRD) Af Amer Est GFR (MDRD) Non-Af BUN/Creatinine Ratio Glucose Calcium Total Bilirubin AST ALT Alkaline Phosphatase Total Protein Albumin Globulin Albumin/Globulin Ratio Serum , Qual Urine Color Yellow Urine Clarity Sl. Cloudy Urine pH 7.0 Ur Specific [place] 1.005 Urine Protein 15 H Urine Glucose (UA) Normal Urine Ketones Negative Urine Occult Blood 250 H Urine Nitrite Negative Urine Bilirubin Negative Urine Urobilinogen Normal Ur Leukocyte Esterase Negative Urine RBC 25-50 SEEN Urine WBC 0 SEEN Ur Squamous Epith Cells 0-5 SEEN Urine Bacteria 0 SEEN Urine Mucus 0 SEEN Radiography Diagnostic Testing: Clinical Impression(s) from Imaging Studies Abdomen/Pelvis CT 10/09/22 12:34 IMPRESSION: 1 cm fatty umbilical hernia stable since multiple prior studies. This Does not contain bowel.. Stable mild skin thickening at the level of the umbilicus recommend direct visualization. Constipation. No appendicitis. No visualized hydronephrosis. Trace amount of free fluid in the pelvis. Interval resolved with a left ovarian cyst since prior study. Small left ovarian follicle. Electronically Signed: Naomi Sprague MD at 14:59 EST Reading Location ID and State: [facility] / [place] Tel , Service support , CT did show the left umbilical hernia but there is only fat involved. No involvement of the bowel. Discharge Plan Triage Chief Complaint: Abd Pain ED Provider: Judd Hooks Dx/Rx/DC Orders Clinical Impression: Influenza A, Umbilical hernia Instructions: ED Hernia (Adult) Prescriptions: New hydrocodone-acetaminophen 5-325 mg tablet 1 tab PO Q6H PRN (Reason: pain) 3 Days Qty: 10 0RF Primary Care Provider: Kristal Ibarra NP Referrals: Walker Man MD [Med Staff - Active Staff] - 3-5 Days Kristal Ibarra NP, [employer] ADMINISTRATOR-C [Primary Care Provider] - Disposition Disposition: Home, Self Care
[2022-10-09 13:47] VITALS: RESP 14
[2022-10-09 14:02] LABS: Bacteria 0 SEEN /hpf (None Seen); Mucous, Urine 0 SEEN /hpf (<or=2+); White Blood Cells 0 SEEN /hpf (0-5)
[2022-10-09 14:04] LABS: Color, Urine Yellow (Yellow); Glucose, Dipstick Normal (Normal); Ketone-Dipstick Negative (Negative); Leukocyte Esterase-Dipstick Negative /ul (Negative); Nitrite-Dipstick Negative (Negative); Occult Blood-Urine 250 /ul (Negative); Protein-Dipstick 15 mg/dl (Negative); Specific Gravity, Urine 1.005 (1.002-1.030); Urine Bilirubin Dipstick Negative (Negative); Urine Clarity Sl. Cloudy (Clear); Urine Urobilinogen Normal (Normal)
[2022-10-09 14:10] LABS: Red Blood Cells-Urine 25-50 SEEN /hpf (0-5); Squamous Epithelial Cells - UA 0-5 SEEN /hpf (5-10)
[2022-10-09 15:47] VITALS: BP 117/52
== END 2022-10-09 16:24 | disposition home or self-care (01) ==
PROVIDERS: Emergency Provider Emergency Medicine; PCP Internal Medicine; Visit Provider Emergency Medicine
DX: J10.1 Influenza due to other identified influenza virus with other respiratory manifestations (principal); K42.9 Umbilical hernia without obstruction or gangrene; F17.290 Nicotine dependence, other tobacco product, uncomplicated
CPT/HCPCS: 74177; 80053; 81001; 84703; 85025; 96361; 96374; 96375; 99283; J7030; Q9967; A4216; J2405

== ENCOUNTER 2023-01-22 17:49 | Emergency (ER) | payer MEDICAID, SELFPAY ==
[2023-01-22 17:50] VITALS: BP 111/75; PULSE 96; RESP 18; TEMP 36.1; O2SAT 99; BMI 18.2
--- NOTE | 2023-01-22 17:58 | ED.VIS.LOWEX ---
HPI History of Present Illness Chief Complaint: Lower Extremity Injury Detail of Chief Complaint: Atraumatic left foot/ankle pain Informant: patient Occured/Mechanism Comment: No known injury. Onset/Context/Timing Onset: Days Context: Sudden Onset Timing: Continuous and Waxes and wanes Quality of Pain: - (Pain) Location: And isNot able to specify the septic location Current Severity: Mild Maximum Severity: Moderate Worsened by: Palpation and use Relieved by: Nothing Associated Symptoms Associated Symptoms: Negative for Parasthesia, Weakness or Loss of Funtion Narrative Narrative: Patient is a 22-year-old female who states she is taken Tylenol with no improvement. She states she cannot take NSAIDs because she has history of Crohn's disease. Review of prior records of the case patient has history of superior mesenteric artery syndrome. Will review problem list on [employer]. Tetanus Immunization: 5-10 years Prior similar symptoms: No Recent Illness/Hospitalization: No PFSH PFSH Medical History Anemia Anxiety Depression History of ulceration Marijuana use Migraine headache Non-smoker Wears glasses Home Medications hydrocodone-acetaminophen 5-325mg 5mg-325mg 1 tab PO Q6H PRN pain 3 days #10 tabs 10/09/22 [Rx Last Taken Unknown] Allergy/AdvReac Type Severity Reaction Status Date / Time gluten AdvReac Upset Verified 01/22/23 17:51 Stomach Surgical History History of colonoscopy (~06/2022) History of esophagogastroduodenoscopy (EGD) (~06/2022) History of umbilical hernia repair Hx of colonoscopy Hx of surgical procedure Hx of wisdom tooth extraction Social History (Updated 01/22/23 @ 18:[address] Garfield Parks MD) household members: none Smoking Status: Current every day smoker tobacco type: e-cigarettes substance use type: marijuana ROS ROS ED Constitutional Constitutional ED: Denies chills, fever(s), subjective, sweats or weight loss Eyes Eyes: Denies blurry vision, change in vision or diplopia Musculoskeletal Musculoskeletal: Reports other Details: There is no history of autoimmune disorder. I.e. rheumatoid arthritis, lupus, sarcoidosis, scleroderma etc. ; Denies arthralgias, back pain, myalgias or neck pain Integumentary Denies abscess, Abrasions or rash Neurologic Neurologic: Denies paresthesias or weakness Hematologic/Lymphatic Hematologic/Lymphatic: Denies easy bleeding or easy bruising EXAM Physical Exam Const Vital Signs: 01/22/23 17:50 Temperature 97 F L Temperature Source Temporal Pulse Rate 96 Respiratory Rate 18 Blood Pressure 111/75 Blood Pressure Mean 87 Pulse Ox 99 Oxygen Delivery Method Room Air Positive well nourished, well developed and unkempt General Appearance ED: unkempt, well developed and NAD HEENT Reports moist mucous membranes normocephalic and atraumatic Eyes PERRL Eyes Narrative: Extract muscle intact. Sclera is anicteric. Neck full ROM and supple Resp normal respiratory effort, no retractions and clear to auscultation bilaterally Cardio regular rate and regular rhythm Extremity normal to inspection and full ROM Extremity Narrative: There is no bruising noted. DP and PT pulse are palpable. There is no soft tissue swelling noted. There is no specific area of tenderness. Functionally the Achilles tendon is intact and there is no tenderness along the Achilles tendon. General Extremety ED: Negative for cyanosis, edema or weight-bearing difficulty General Extremity: Negative for cyanosis, edema or weight-bearing difficulty Neuro oriented x3, CN's II-XII intact bilaterally and moves all extremities Plantar Reflex: Downgoing: bilateral Psych mental status grossly normal Appearance: unkempt Skin no wounds Lesions: no lesions Rashes: no rashes MDM MDM MDM Narrative Medical decision making narrative: We will obtain x-ray to see if is any evidence of prior injury, arthritis. Patient declined ibuprofen. She informed that she has inflammatory bowel disorder. Will review prior records to confirm or refute patient's claim. History & Record Review Additional record(s) reviewed:: No prior records (There was a visit April 2021 at [facility]. There is no mention of inflammatory bowel disorder. There is no mention of inflammatory bowel disorder listed on her problem list either.) Radiography Chest X-Ray - ED: Read by ED Physician (Three-view x-ray of the left foot was obtained independently interpreted by me as negative for fracture, subluxation dislocation or foreign body. There is no soft tissue swelling noted either.) Treatment and Re-Evaluation Narrative: Patient was informed of results. Recommend follow-up with [facility] since she has no doctor and ice. Discharge Plan Triage Chief Complaint: Lower Extremity Injury ED Provider: Garfield Parks Dx/Rx/DC Orders Clinical Impression: Acute pain of left foot Instructions: ED RICE Prescriptions: No Action hydrocodone-acetaminophen 5-325 mg tablet 1 tab PO Q6H PRN (Reason: pain) 3 Days Qty: 10 0RF Primary Care Provider: Care Physician,No Primary Referrals: Kesha Robbins [Non-Staff] - 3-5 Days if not improving Care Physician,No Primary [Primary Care Provider] - Disposition Disposition: Home, Self Care
--- NOTE | 2023-01-22 18:03 | RAD_ITS ---
INDICATION: Injury/Pain EXAMINATION/TECHNIQUE: X-RAY - LEFT XR Foot Min 3 Views 3 VIEWS COMPARISON: None. FINDINGS: SOFT TISSUES: No soft tissue swelling or gas. No radiopaque foreign body. BONES/JOINTS: No acute fracture or subluxation. Os naviculare. Lisfranc and Chopart planes appear normal. Joint spaces are maintained. No sclerotic or destructive changes observed. RAD/Foot min 3 Views IMPRESSION: Negative. Electronically Signed: Shane Gloria MD at 18:28 EDT ,
== END 2023-01-22 18:36 | disposition home or self-care (01) ==
PROVIDERS: Emergency Provider Emergency Medicine; Referring Provider Emergency Medicine; Visit Provider Emergency Medicine
DX: M79.672 Pain in left foot (principal); F17.290 Nicotine dependence, other tobacco product, uncomplicated; F12.90 Cannabis use, unspecified, uncomplicated
CPT/HCPCS: 73630; 99282